=== PATIENT | female | born 1975 | race Caucasian/White ===

== ENCOUNTER → 2018-09-17 | Outpatient (CLI) | payer MEDICAID ==
--- NOTE | 2018-09-17 16:31 | US ---
EXAMINATION TYPE: US pelvic complete DATE OF EXAM: 09/17/2018 COMPARISON: Pelvic ultrasound September 25, 2013 CLINICAL HISTORY: N93.9 Abnormal uterine and vaginal bleeding. Vaginal spotting intermittently x 2 we eks; uterine fibroids; G0; on Synthroid TECHNIQUE: Transabdominal (TA). Transabdominal sonographic images of the pelvis were acquired; alexia ent declined TV US to further assess endometrium. Date of LMP: 09/15/2018 EXAM MEASUREMENTS: Uterus: 7.9 x 6.2 x 5.9 cm Endometrial Stripe: 0.7 cm Right Ovary: 3.1 x 2.0 x 2.0 cm Left Ovary: 2.3 x 2.4 x 1.7 cm 1. Uterus: Anteverted; multiple uterine fibroids with largest at upper uterus = 3.5 x 2.6 x 2.9cm sm all Nabothian Cyst in cervix = 0.6 x 0.8 x 0.6cm. 2. Endometrium: thicker for Day 3 LMP 3. Right Ovary: follicular cyst = 1.7 x 1.1 x 1.0cm 4. Left Ovary: multiple follicles with largest = 1.0 x 1.3 x 1.2cm. Spectral, color and waveform Doppler imaging shows good arterial and venous flow within the ovaries ; 5. Bilateral Adnexa: wnl 6. Posterior cul-de-sac: wnl Heterogeneous anteverted uterus is seen. There are multiple heterogeneous hypoechoic lesions identifi ed by technologist during real-time scanning, a peripheral fundal slightly hypoechoic 3.5 cm poorly d efined lesion is felt to reflect subserosal fibroid per technologist. No free fluid is seen in pelvic cul-de-sac. Of small Nabothian cyst is seen in the cervix image 32. Both ovaries are identified and normal in size. No suspicious adnexal lesions are seen. IMPRESSION: Heterogeneous probable fibroid uterus. Fibroids can be better evaluated and characterized with pelvic MRI if desired.
== END | disposition home or self-care (01) ==
LOC: RADUSWWP 15:31
PROVIDERS: ATTEND Family Medicine
DX: N93.9 Abnormal uterine and vaginal bleeding, unspecified (principal); Z86.018 Personal history of other benign neoplasm
CPT/HCPCS: 76856

== ENCOUNTER → 2018-09-27 | Outpatient (CLI) | payer MEDICAID ==
--- NOTE | 2018-09-27 09:52 | MM ---
Reason for exam: clinical finding. Baseline mammogram. History: Patient is nulliparous. Indicated problem(s): lump or thickening in the left breast. Physical Findings: Nurse Summary: 2cm nodule in the left breast at 2 o'clock (nurse ad). MG Diagnostic Mammo w CAD GABRIELA Bilateral CC and MLO view(s) were taken. The breast tissue is heterogeneously dense. This may lower the sensitivity of mammography. There is no discrete abnormality. These results were verbally communicated with the patient and result sheet given to the patient on 09/27/18. ASSESSMENT: Incomplete: need additional imaging evaluation, BI-RAD 0 RECOMMENDATION: Ultrasound of the left breast.
--- NOTE | 2018-09-27 09:56 | USB ---
Reason for exam: additional evaluation requested from abnormal screening. History: Patient is nulliparous. US Breast LT Left complete breast ultrasound includes all four quadrants, the retroareolar region and axilla. Finding demonstrates a 0.3 x 0.3 x 0.2cm oval, cystic lesion at 12 o'clock, a 0.6 x 0.6 x 0.3cm oval, irregular, hypoechoic lesion at 1 o'clock, a 2.0 x 2.1 x 1.6cm irregular, hypoechoic, vascular lesion at 2 o'clock BB for which a biopsy is recommended, a 1.5 x 1.6 x 0.6cm oval, lobular, hypoechoic lesion at 5 o'clock, a 0.7 x 0.5 x 0.4cm oval, lobular, irregular, hypoechoic lesion at 6 o'clock, a 0.5 x 0.5 x 0.4cm oval, cystic lesion at 8 o'clock, a 1.2 x 0.9 x 0.8cm irregular, oval, hypoechoic lesion at the posterior nipple for which a biopsy is recommended and a 0.9 x 0.8 x 0.6cm axilla node. These results were verbally communicated with the patient and result sheet given to the patient on 09/27/18. ASSESSMENT: Highly suggestive of malignancy, BI-RAD 5 RECOMMENDATION: Surgical consultation and ultrasound core biopsy of the left breast. (2 sites) Called with mammographic findings and has scheduled an appointment for the patient for 10/02/18 at 2:[address] Bermudez. PRELIMINARY REPORT CALLED AND FAXED TO ON 09/27/18. [facility]
== END ==
LOC: RADMAMWWP 07:05
PROVIDERS: ATTEND Family Medicine
DX: N63.20 Unspecified lump in the left breast, unspecified quadrant (principal)
CPT/HCPCS: 77066

== ENCOUNTER → 2018-10-09 | Day surgery (SDC) | payer MEDICAID ==
[2018-10-09 13:44] VITALS: BP 123/71; TEMP 97.9; BMI 21.2
--- NOTE | 2018-10-09 15:45 | USB ---
EXAMINATION TYPE: US biopsy breast VAD LT, US biopsy breast add'l VAD LT Post procedure diagnostic mammo LT wo CAD DATE OF EXAM: 10/09/2018 CLINICAL HISTORY: 43-year-old female palpable lump left breast referred for multi site biopsy. R92.8 ABN MAMMO. TECHNIQUE: Ultrasound guided core biopsy of the left breast. COMPARISON: 09/27/2018 FINDINGS: The procedure of ultrasound guided core biopsy was explained to the patient. Benefits, alternatives, and risks were discussed. An informed consent was then obtained. We note multiple lesions on the patient's 09/27/2018 exam. The 2:00 lesion corresponds to the suspicious palpable site. A posterior nipple lesion is in relatively close proximity to the 2:00 lesion and has a similar appearance. 1:00, 5:00, 6:00, at 8:00 lesions are all suspicious. Decision was made to biopsy the palpable 2:00 site as well as the 8:00 site to assess for potential multicentric disease. The patient was placed in supine positioning for imaging and for the procedure. The overlying skin was prepped and draped in usual sterile fashion. Lidocaine buffered with bicarbonate was used as anesthetic into the skin and subcutaneous tissue up to area of concern in the left breast, at each site in turn. (1) SITE A: Palpable 2:00 -- additional deeper local anesthesia utilizing lidocaine/epinephrine mixture was utilized up to and around the lesion. Under ultrasound guidance, a 13-gauge vacuum-assisted Mammotome Elite biopsy gun device was used to obtain 6 core samples. Following this, a WING CLIP was left in lesion. (2) SITE B: 8:00, indeterminate but suspicious -- Under ultrasound guidance, a 13-gauge vacuum-assisted Mammotome Elite biopsy gun device was used to obtain 3 core samples. Following this, a COIL CLIP was left in lesion. (3) To assess proximity of lesions, a RIBBON CLIP was placed in the posterior nipple mass which is very suspicious and is in relative proximity to the sampled 2:00 mass. The patient tolerated the procedure well without any immediate complication. The patient was kept in the radiology department for short stay after the procedure and then discharged home in stable condition. Postbiopsy mammogram shows the [address] Maximum distance between the clips is approximately 5 to 6 cm. IMPRESSION: 1. Successful, uncomplicated 2 site ultrasound guided core biopsy of suspicious left breast lesions: -- 2:00, very suspicious large palpable mass, wing clip. -- 8:00, suspicious smaller lesion (to assess for potential multicentric disease, coil clip. -- Posterior nipple - Ribbon clip placed (without biopsies) of the very suspicious mass. Full pathology results to follow. If the 8:00 lesion returns as benign, consideration can be given to sampling the 5:00 or 6:00 lesions to assess for potential multicentric disease. Breast MRI can also be considered. Pathology Results: Malignant A. 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 Appropriately controlled E-Cadherin stained sections show negative staining of tumor cells confirmatory of lobular carcinoma. B. 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 Appropriately controlled E-cadherin stained sections show negative staining of tumor cells confirmatory of lobular carcinoma. Recommendation Surgical consult of the left breast. [facility]
[2018-10-09 15:54] VITALS: PULSE 65; RESP 16
== END ==
LOC: RADUSWWP 13:07
PROVIDERS: ATTEND Surgery
DX: C50.911 Malignant neoplasm of unspecified site of right female breast (principal); D05.01 Lobular carcinoma in situ of right breast; Z88.1 Allergy status to other antibiotic agents; Z88.5 Allergy status to narcotic agent; Z88.2 Allergy status to sulfonamides
CPT/HCPCS: 88305; 88342; 88341; 77065; 19083; 19084; A4648; J2001

== ENCOUNTER → 2018-10-17 | Outpatient (CLI) | payer MEDICAID ==
[2018-10-17 08:17] VITALS: BP 147/82; PULSE 70; RESP 16; TEMP 98.1; BMI 20.9
--- NOTE | 2018-10-17 09:12 | P.GSHP ---
History of Present Illness H&P Date: 10/17/18 Chief Complaint: left breast cancer Jane is a 43 year old white female who August 24 noted a change in her left breast. There was a fullness and some skin dimpling different than the right side. She subsequently had a bilateral mammogram performed on 10-07-18. The mammogram revealed dense breast tissue. She therefore underwent an ultrasound of the left breast. On the ultrasound of the left breast there were 4 areas of concern 2 of which were biopsied. The 2 biopsied areas revealed infiltrating adenocarcinoma consistent with pleomorphic lobular carcinoma as well as lobular carcinoma in situ. There is slight distortion of the nipple pulling inferior on the left side. She does complain of a burning aching sensation in the left breast. The patient has no history of any trauma or infection to her breast. Family History: maternal grandmother: colon cancer maternal cousin: at 52 of colon cancer Hormonal History: menarche: 14 : none periods: regular, last period this week BCP: 15 years, than had a tubaligation Surgical history: 1. tubaligation 2. sliver in foot Medical History: hypothyroid ? IBS history of MRSA of big toe right foot 3 years ago Social History: smoke: stopped 3 years ago, used to smoke 1 pack/week, 5 years alcohol: occasional drugs: none - Constitutional Constitutional: Denies chills, Denies fever - EENT Eyes: denies blurred vision, denies pain Ears: bilateral: decreased hearing, deny: tinnitus Ears, nose, mouth and throat: Reports headache, Denies sore throat - Breasts Breasts: bilateral: as per HPI - Cardiovascular Cardiovascular: Denies chest pain, Denies shortness of breath - Respiratory Respiratory: Denies cough, Denies 7 - Gastrointestinal Comment: IBS - Genitourinary (Female) Comment: status post tubaligation - Menstruation Menstruation: Reports period normal - Musculoskeletal Musculoskeletal: Denies myalgias - Integumentary Comment: hives in the past, now improved Integumentary: Denies pruritus, Denies rash - Neurological Neurological: Denies numbness, Denies weakness - Psychiatric Psychiatric: Reports anxiety, Denies depression - Endocrine Endocrine: Denies fatigue, Denies weight change - Hematologic/Lymphatic Comment: none - Allergic/Immunologic Comment: cephalexin, hydrocodone sinus inflammation at times hives in the past Past Medical History Past Medical History: Thyroid Disorder History of Any Multi-Drug Resistant Organisms: MRSA Date of last positivie culture/infection: 01/2015 MDRO Source:: UNK Past Surgical History: Tubal Ligation Past Anesthesia/Blood Transfusion Reactions: No Reported Reaction Past Psychological History: Anxiety Smoking Status: Former smoker Past Alcohol Use History: Occasional Past Drug Use History: None Reported Medications and Allergies Home Medications Medication Instructions Recorded Confirmed Type Levothyroxine Sodium [Synthroid] 25 mcg PO DAILY 06/15/15 10/09/18 History Cetirizine HCl [Zyrtec] 10 mg PO DAILY PRN 10/02/18 10/17/18 History Allergies Allergy/AdvReac Type Severity Reaction Status Date / Time cephalexin [From Keflex] Allergy Unknown Verified 10/17/18 08:11 hydrocodone Allergy Unknown Verified 10/17/18 08:11 Surgical - Exam Vital Signs Temp Pulse Resp BP Pulse Ox 98.1 F 70 16 147/82 100 10/17/18 08:12 10/17/18 08:12 10/17/18 08:12 10/17/18 08:12 10/17/18 08:12 BMI 20.9 - General well developed, well nourished, no distress - Eyes normal ocular movement - ENT no hearing loss, no congestion - Neck no masses, trachea midline - Respiratory normal respiratory effort, clear to auscultation - Cardiovascular Rhythm: regular Heart Sounds: normal: S1, S2 - Abdomen Abdomen: soft, non tender, no guarding, no rigid, no rebound - Integumentary no rash, no abnormal pigmentation - Neurologic no disoriented, no combative - Musculoskeletal normal gait, normal posture - Psychiatric oriented to time, oriented to person, oriented to place, speech is normal, memory intact Breast examination: Right breast: Multi-positional exam no dominant masses or nodules of concern Axilla: No adenopathy of concern Left breast: Ecchymosis related to recent biopsy, fullness in the 8 o'clock position core large mass noted, mild nipple retraction, fibrocystic changes Left axilla: Shoddy non-worrisome adenopathy Breast size: 38 D/C Ptosis mild Results Mammogram and ultrasound reviewed Assessment and Plan Assessment: Impression: 1. 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 Fibrocystic breast changes 3. Family history of cancer 4. Sinus inflammation 5. Radiographic abnormality left breast I have reviewed the patient's mammogram and ultrasound with radiology. The concern is that the patient has multifocal disease. The patient also has some nipple retraction. I've discussed with the patient surgical treatment options. The patient wishes to undergo a left skin sparing mastectomy with immediate reconstruction, she will also undergo a sentinel node biopsy as well as possible axillary node dissection. We have also discussed the right breast. The patient is going to be recommended to undergo a bilateral breast MRI. The lesion of concern in the left breast was not identified on mammogram and was seen by ultrasound. The patient is also recommended to undergo genetic testing. She will have her case presented at tumor Board. The patient understands the risks and benefits of the procedure and the procedure will be scheduled in the near future. Plan: 1. Genetic testing 2. Bilateral breast MRI 3. Evaluation by medical oncology 4. Evaluation by radiation oncology 5. Plastic surgical consultation 6. Left breast skin sparing mastectomy with immediate reconstruction, sentinel node biopsy possible axillary node dissection 7. Right breast evaluation via MRI and determination of genetic testing prior to surgery 8. Follow-up care after genetic testing and breast MRI performed 9. Presentation of case at tumor board CC: Dr. Elisabeth Calderón
== END ==
LOC: WWCWWP 07:55
PROVIDERS: ATTEND Surgery
DX: Z53.9 Procedure and treatment not carried out, unspecified reason (principal)

== ENCOUNTER → 2018-11-08 | Outpatient (CLI) | payer MEDICAID ==
--- NOTE | 2018-11-10 14:05 | PE ---
Nuclear medicine PET/CT HISTORY: Breast carcinoma, initial Correlation to breast ultrasound 09/27/2018 left breast Patient received 13.4 mCi F-18 FDG intravenously in delayed scanning was performed from the skull bas e to the mid thighs. Localization and attenuation correction CT scan was also performed. Neck and chest: There is hypermetabolic uptake identified within the left breast, SUV 2.9. No evident axillary, mediastinal, or hilar adenopathy. There is no evident lung mass. No additional suspicious hypermetabolic uptake. No cervical adenopathy. ABDOMEN: Some uptake present within the stomach is felt to be physiologic. No evident liver mass, no retroperitoneal adenopathy or suspicious hypermetabolic uptake. Uterus shows a bulky appearance possi stella due to underlying fibroids. No pelvic adenopathy, no ascites. Osseous structures are within normal limits. IMPRESSION: Findings compatible with patient's history of left breast carcinoma.
== END | disposition home or self-care (01) ==
LOC: RADPETMAIN 14:39
PROVIDERS: ATTEND Internal Medicine Hematology & Oncology
DX: C50.812 Malignant neoplasm of overlapping sites of left female breast (principal)
CPT/HCPCS: 78815; A9552

== ENCOUNTER → 2018-11-20 | Outpatient (CLI) | payer MEDICAID ==
--- NOTE | 2018-11-22 07:56 | BMR ---
EXAMINATION TYPE: MR breast BILAT wo/w con DATE OF EXAM: 11/20/2018 COMPARISON: Bilateral breast mammogram September 27, 2018 BI-RADS 0. Ultrasound left breast September 27 9 BI-RADS 5. PET/CT November 08, 2018. HISTORY: Biopsy-proven multicentric infiltrating adenocarcinoma right breast 2 2:00 and 8:00 position . October 09, 2018. CONTRAST: Multiplanar, multisequence images of the breasts were acquired utilizing 6 mL intravenous Gadavist ga dolinium contrast. TECHNIQUE: A series of fat and water weighted images in the long and short axis views of both breasts are obtained in conjunction with dynamic contrast MRI with subtraction technique. Three-dimensional and additional postprocessing imaging is created on independent workstation and reviewed during offi cial interpretation of this study. FINDINGS: Extremely dense fibroglandular tissue is redemonstrated throughout both breasts. There is n o suspicious skin thickening bilaterally. There is suggestion of slight nipple retraction on the left . Dynamic postcontrast images show moderate to severe background enhancement with areas of rounded gr adual enhancement. No suspicious cystic change in either breast. Near level of the nipple there is artifact from biopsy clip likely corresponding to the 8:00 lesion s een best image 15 series 301. Biopsy clip is along posterior superior margin of a lobulated enhancing 1.2 x 0.7 x 0.3 cm mass which correlates with ultrasound findings correlating with biopsy-proven car cinoma. Just superior and posterior to this there is artifact from biopsy clip at level of nipple see n best axial image 20 where there is 3.2 x 0.9 x 5.4 cm AP diameter heterogeneous lobulated area of m asslike enhancement occupying greater extent of the central left breast slightly lateral aspect. Ther e are additional scattered small foci of suspicious enhancement near these levels in the left breast with extension posteriorly near the chest wall for reference is a 4 x 3 mm suspicious enhancing lesio n near the chest wall seen best image 339 series 702 subtraction image measuring 3 x 4 mm. There are prominent but nonspecific left axillary lymph nodes, largest measures 6 x 5 mm axial image 33. No def initive intramammary adenopathy is seen. No definitive chest wall invasion is present. With regard to the right breast there is no definitive pathologic enhancement or suspicious enhancing mass. No suspicious axillary adenopathy is seen. IMPRESSION: Confirmation of extensive multicentric neoplasm throughout the left breast with additiona l areas present not clearly seen on prior imaging including PET imaging. No convincing evidence for i nvasive malignancy in the right breast. BI-RADS 6 biopsy-proven carcinoma left breast. BI-RADS 2 benign findings right breast. Recommendation: Patient not candidate for conservative surgery left breast. If patient decides to eva p right breast consider annual MRI surveillance in high risk patient.
== END | disposition home or self-care (01) ==
LOC: RADMRIMAIN 09:50
PROVIDERS: ATTEND Surgery
DX: C50.012 Malignant neoplasm of nipple and areola, left female breast (principal)
CPT/HCPCS: 77049; C8937; A9585

== ENCOUNTER → 2018-11-29 | Outpatient (CLI) | payer MEDICAID ==
[2018-11-29 11:14] VITALS: BP 129/77; PULSE 66; RESP 16; TEMP 98.2; BMI 21.2
--- NOTE | 2018-11-29 11:44 | P.GSHP ---
History of Present Illness H&P Date: 11/29/18 Chief Complaint: Left breast cancer The patient is a 43-year-old white female with August noted a change in her left breast. There was a fullness and some skin dimpling which appeared different than on the right side. She subsequently had a bilateral mammogram performed on . The mammogram revealed dense breast tissue. She therefore underwent an ultrasound of the left breast. On ultrasound there were 4 areas of concern 2 of which were biopsied. The 2 biopsy areas revealed infiltrating adenocarcinoma consistent with pleomorphic lobular carcinoma as well as lobular carcinoma in situ. There is slight distortion of the nipple pulling inferior on the left side. The patient states since the biopsy she feels that the area has increased in size. The patient was seen by Dr. Larose believes that she does not need any preoperative chemotherapy and we should p roceed with surgical resection. The patient had an MRI performed which reveals that the tumor on the left side is multifocal. There is no evidence of any malignancy on MRI on the right side. The lesion is ER/PA positive and HER-2 negative grade 2. She has multiple lesions within the left breast at 1:00 there is a lesion measuring 2.1 cm, at 2:00 lesion measuring 1.6 cm, at 5:00 lesion measuring 0.7 cm, at 6:00 lesion measuring 0.5 cm, o'clock of 1.2 cm irregular lesion. A PET scan was performed on . PET scan showed findings compatible with history of left breast carcinoma. No axillary adenopathy was identified on PET scan. We had discussed surgical options and felt that the best choice for Jane is a mastectomy. She concurs with this. Additionally she understands we will do a lymph node biopsy possible axillary node dissection. We also discussed reconstruction however the patient at this time does not want to pursue reconstruction. The patient had genetic testing performed which was negative clinically significant variance detected. Family History: Paternal grandmother: Colon cancer Maternal cousin: of colon cancer at 52 Hormonal history: Menarche: 14 Pregnancies: None Periods: Regular, last Mr. October 15 control pills: 15 years, then had a tubal ligation Line past surgical history: 1. 2 plication 2. Severe in her salad Medical history: Hypothyroidism Irritable bowel syndrome MRSA. Toe right foot 3 years ago Social history: Smoke: Stopped 2 years ago used to smoke 1 pack per week for 5 years Alcohol: Occasional Drugs: Negative - Constitutional Constitutional: Denies chills, Denies fever - EENT Eyes: denies blurred vision, denies pain Ears: deny: decreased hearing, tinnitus Ears, nose, mouth and throat: Denies headache, Denies sore throat - Breasts Breasts: bilateral: as per HPI - Cardiovascular Cardiovascular: Denies chest pain, Denies shortness of breath - Respiratory Respiratory: Denies cough, Denies 7 - Gastrointestinal Comment: IBS - Genitourinary (Female) Comment: tubaligation - Menstruation Menstruation: Reports period normal - Musculoskeletal Musculoskeletal: Denies myalgias - Integumentary Integumentary: Denies pruritus, Denies rash - Neurological Neurological: Denies numbness, Denies weakness - Psychiatric Psychiatric: Denies anxiety, Denies depression - Endocrine Endocrine: Denies fatigue, Denies weight change - Hematologic/Lymphatic Comment: none - Allergic/Immunologic Allergic/Immunologic: Reports as per HPI Past Medical History Past Medical History: Thyroid Disorder History of Any Multi-Drug Resistant Organisms: MRSA Date of last positivie culture/infection: 01/2015 MDRO Source:: UNK Past Surgical History: Tubal Ligation Past Anesthesia/Blood Transfusion Reactions: No Reported Reaction Past Psychological History: Anxiety Smoking Status: Former smoker Past Alcohol Use History: Occasional Past Drug Use History: None Reported Medications and Allergies Home Medications Medication Instructions Recorded Confirmed Type Levothyroxine Sodium [Synthroid] 25 mcg PO DAILY 06/15/15 10/09/18 History Cetirizine HCl [Zyrtec] 10 mg PO DAILY PRN 10/02/18 10/17/18 History Allergies Allergy/AdvReac Type Severity Reaction Status Date / Time cephalexin [From Keflex] Allergy Unknown Verified 11/29/18 11:15 hydrocodone Allergy Unknown Verified 11/29/18 11:15 sulfamethoxazole AdvReac Unknown Unverified 11/29/18 11:16 [From Bactrim] trimethoprim [From Bactrim] AdvReac Unknown Unverified 11/29/18 11:16 Surgical - Exam Vital Signs Temp Pulse Resp BP Pulse Ox 98.2 F 66 16 129/77 99 11/29/18 11:09 11/29/18 11:09 11/29/18 11:09 11/29/18 11:09 11/29/18 11:09 BMI 21.3 - General well developed, well nourished, no distress - Eyes normal ocular movement - ENT no hearing loss - Neck no masses, trachea midline - Respiratory normal respiratory effort, clear to auscultation - Cardiovascular Rhythm: regular Heart Sounds: normal: S1, S2 - Abdomen Abdomen: soft, non tender, no guarding, no rigid, no rebound - Integumentary normal turgor - Neurologic no disoriented, no combative - Musculoskeletal normal gait, normal posture - Psychiatric oriented to time, oriented to place, memory intact breast exam: right breast: Multi-positional exam no dominant masses or nodules of concern, breast is dense Right axilla: No adenopathy of concern Left breast: Multi-positional exam some dimpling of the nipple area with some nodularity throughout the breast Left axilla: No adenopathy of concern Results Mammogram results reviewed PET scan reviewed MRI of the breast reviewed Assessment and Plan Assessment: Impression: 1. Genetic testing negative 2. Bilateral breast MRI reveals left breast lesion nothing on the right 3. Invasive pleomorphic lobular left breast cancer 4. Patient has been evaluated by medical oncology they do not feel that she needs any preoperative intervention 5. Patient has opted not to see plastic surgery at this time 6. PET scan did not reveal any evidence of metastatic disease I have had a conversation with the patient regarding surgical options. At this time she does not want plastic surgical intervention and reconstruction. She does want us to leave adequate tissue for reconstruction possibly in the future. Plan: 1. Left breast mastectomy with sentinel node biopsy possible axillary node dissection CC: Dr. Kell Bermudez
== END | disposition home or self-care (01) ==
LOC: WWCWWP 10:59
PROVIDERS: ATTEND Surgery
DX: Z53.9 Procedure and treatment not carried out, unspecified reason (principal)

== ENCOUNTER 2018-12-03 07:12 | Day surgery (SDC) | payer MEDICAID ==
[~2018-12-03 07:12] MED LIST: DEXAMETHASONE SOD PHOSPHATE 10 MG/ML 1 ML VIAL IV ONE; HEPARIN SODIUM,PORCINE 5,000 UNIT/ML 1 ML VIAL SQ ONE; HYDROmorphone 0.5 MG/0.5 ML SYRINGE IVP PRN; LACTATED RINGERS 1,000 ML IV SCH; LIDOCAINE 1% 20 ML VIAL (10MG/ML) FOR IV START INTRADERMA PRN; MIDAZOLAM 2 MG/2 ML VIAL IV PRN; ONDANSETRON 4 MG/2 ML VIAL IVP ONE; Pre Op ABX Message 1 EACH MISC MISCELLANE ONE; SCOPOLAMINE 1.5MG/72HR PATCH TRANSDERM ONE
--- NOTE | 2018-12-03 08:33 | P.ONQ ---
Anesthesiology Proc Note - PNB - Peripheral Nerve Block Performed Left Other (see comment) Single Time Out Performed: Yes Procedure Start Time: 08:15 Procedure Stop Time: :22 Indication: Acute Post-Operative Pain, Requested by physician Sedation Type: Sedate with meaningful contact maintained Preparation: Sterile Prep Position: Supine Catheter: None Needle Types: Facet Needle Size: 80mm (3") Needle Gauge: 21 Technique: Ultrasound Injectate: 0.5% Ropivacaine (see comment for volume) (30 ml divided 15 ml per site) Blood Aspirated: No Pain Paresthesia on Injection Noted: No
--- NOTE | 2018-12-03 08:51 | NM ---
EXAMINATION TYPE: NM sentinel node injection DATE OF EXAM: 12/03/2018 COMPARISON: Left breast biopsy dated 10/09/2018 HISTORY: Left breast pain TECHNIQUE AND FINDINGS: The procedure of sentinel lymph node injection was explained to the patient. The benefits, alternatives, and risks were discussed. An informed consent was then obtained. Overlying skin is cleaned with sterile alcohol. Following this, 560 uCi Tc99m Tilmanocept was inject ed in the upper outer aspect of the left nipple intradermally. The patient tolerated the procedure well without any immediate complication. The patient was kept in the radiology department for short stay after the procedure and then taken to surgery for surgical p rocedure what is presumed intraoperative gamma probe will be used for sentinel lymph node detection. IMPRESSION: Left breast radiotracer injection for sentinel node localization as above.
[2018-12-03] MEDS ORDERED: NEOSTIGMINE 1 MG/ML 10 ML VIAL ONE (09:00)
[2018-12-03] MEDS ORDERED: MIDAZOLAM 2 MG/2 ML VIAL ONE (09:00)
[2018-12-03] MEDS ORDERED: LIDOCAINE 1% INJ 10MG/ML (20 ML MDV) ONE (09:00)
[2018-12-03] MEDS ORDERED: KETOROLAC 30 MG/ML 1 ML VIAL ONE (09:00)
[2018-12-03] MEDS ORDERED: PROPOFOL 10 MG/ML 20 ML VIAL IV ONE (09:00)
[2018-12-03] MEDS ORDERED: fentaNYL (PF) 50 MCG/ML 2 ML AMP ONE (09:00)
[2018-12-03] MEDS ORDERED: ROCURONIUM BROMIDE 10 MG/ML 10 ML VIAL IV ONE (09:00)
[2018-12-03] MEDS ORDERED: CLINDAMYCIN 150 MG/ML 4 ML VIAL ONE (09:00)
[2018-12-03] MEDS ORDERED: PHENYLEPHRINE-0.9% NACL SYG 1 MG/10 ML SYRINGE ONE (09:00)
[2018-12-03] MEDS ORDERED: ROPIVACAINE 5 MG/ML 30 ML VIAL ONE (09:00)
[2018-12-03] MEDS ORDERED: GLYCOPYRROLATE 0.2 MG/ML 2 ML VIAL ONE (09:00)
[2018-12-03] MEDS ORDERED: HEPARIN SODIUM,PORCINE 5,000 UNIT/ML 1 ML VIAL SQ ONE (09:23)
--- NOTE | 2018-12-03 09:25 | P.NAPBC ---
[facility] Queries - [facility] Was patient's case review presented at [facility] tumor board? If no, comment.: Yes Was patient's pathology reviewed at [facility]? If no, comment.: Yes Was breast conservation surgery offered? If no, comment.: No (multfocal disease) Was sentinel node biopsy offered? If no, comment.: Yes Was diagnosis confirmed by percutaneous core biopsy? If no, comment.: Yes If mastectomy patient, was a preop referral to a reconstructive surgeon offered?: Yes [facility] Comments: [id number]+Her2-Grade2
[2018-12-03] MEDS ORDERED: NALOXONE 0.4 MG/ML 1 ML VIAL IV PRN (11:25)
[2018-12-03] MEDS ORDERED: ONDANSETRON 4 MG/2 ML VIAL IVP PRN (11:25)
[2018-12-03] MEDS ORDERED: HYDROmorphone 1 MG/ML 1 ML SYRINGE IV PRN (11:25)
--- NOTE | 2018-12-03 11:25 | P.OP ---
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 This was done via cold biopsy. The patient opted for a mastectomy with sentinel node biopsy possible axillary node dissection. The patient was taken to the operating room and following induction of anesthesia the left breast and axilla were prepped and draped in a sterile fashion. Superior skin flap was developed using the electrocautery device. The skin flap was carried down to the chest wall. Inferior skin flap was then developed. The flap was developed using the electrocautery device. Prior to removing the breast the axilla was entered. The neoprobe was utilized to identify the area of increased radioactivity. The sentinel node was identified. This was removed. The 10 second count was 84,000. The second sentinel node was identified and its 10 second count was 26,000. The background count in the axilla was minimal. Frozen section evaluation to sentinel node found to be negative for malignancy. The breast was removed from medial to lateral using the LigaSure as well as the nerve. The wound was well irrigated. After assured that hemostasis was attained 2 Aba-Murphy drains were placed. One was placed in the axilla was placed under the skin flaps. The deep tissues were closed using 2-0 Vicryl suture. This is followed by closure of the skin with 4-0 Monocryl. The patient tolerated the procedure in stable condition. All instrument and sponge counts were correct at the end of the case. Patient tolerated the procedure in stable condition.
[2018-12-03 14:33] VITALS: BMI 21.1
[2018-12-03] MEDS: Acetaminophen-Codeine 300-30mg TAB PO PRN ×2 (16:17→21:02)
[2018-12-03] MEDS: DEXTROSE 5%-0.45% NACL 1,000 ML IV SCH ×2 (16:20→21:04)
[2018-12-03] MEDS: HEPARIN SODIUM,PORCINE 5,000 UNIT/ML 1 ML VIAL SQ SCH (21:04)
[2018-12-04] MEDS: Acetaminophen-Codeine 300-30mg TAB PO PRN ×4 (00:37→13:52)
[2018-12-04] MEDS: DEXTROSE 5%-0.45% NACL 1,000 ML IV SCH (02:05)
[2018-12-04 05:51] LABS: Basophils % (A) 0 %; Eosinophils # (A) 0.1 k/uL (0-0.7); Eosinophils % (A) 1 %; HCT 30.5 % (34.0-46.0); HGB 10.3 gm/dL (11.4-16.0); Lymphocytes # (A) 1.7 k/uL (1.0-4.8); Lymphocytes % (A) 18 %; MCH 31.8 pg (25.0-35.0); MCHC 33.7 g/dL (31.0-37.0); MCV 94.1 fL (80.0-100.0); Monocytes # (A) 0.4 k/uL (0-1.0); Monocytes % (A) 5 %; Neutrophils # (A) 7.3 k/uL (1.3-7.7); Neutrophils % (A) 76 %; Platelet Count 284 k/uL (150-450); RBC 3.24 m/uL (3.80-5.40); RDW 12.4 % (11.5-15.5); WBC 9.7 k/uL (3.8-10.6)
--- NOTE | 2018-12-04 07:52 | P.PN ---
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 She is postop day #1 from a left mastectomy and sentinel node biopsy. [place] biopsy and frozen section was negative for malignancy. The patient has no complaints at this time. She is tolerating her diet without difficulty. Objective - Vital Signs Vital signs: Vital Signs Temp 98.8 F 12/04/18 03:40 Pulse 60 12/04/18 03:40 Resp 18 12/04/18 03:40 BP 98/54 12/04/18 03:40 Pulse Ox 95 12/04/18 03:40 Intake & Output 12/03/18 12/04/18 12/04/18 18:59 06:59 18:59 Intake Total 1000 1500 Output Total 1665 1405 Balance -665 95 Intake: IV 1000 Intake, IV Titration 1000 Amount Dextrose 5%-0.45% NaCl 1, 1000 000 ml @ 100 mls/hr IV . Q10H HAYDEN Rx#:[id number] Oral 500 Output: Drainage 40 30 FELECIA number 1 28 20 FELECIA number 2 12 10 Urine 1600 1375 Estimated Blood Loss 25 Other: Voiding Method Toilet Toilet # Voids 1 1 - Constitutional General appearance: Present: average body habitus - EENT Eyes: Present: EOMI ENT: Present: hearing grossly normal - Neck Neck: Present: normal ROM - Respiratory Respiratory: bilateral: CTA - Cardiovascular Rhythm: regular Heart sounds: normal: S1, S2 - Integumentary Integumentary Comment(s): Dressing changed Incision clean and dry FELECIA #1 20 mL FELECIA #2 10 mL Drainage is light serosanguineous - Labs CBC & Chem 7: 12/04/18 05:38 Labs: Abnormal Lab Results - Last 24 Hours (Table) 12/04/18 Range/Units 05:38 RBC 3.24 L (3.80-5.40) m/uL Hgb 10.3 L (11.4-16.0) gm/dL Hct 30.5 L (34.0-46.0) % Assessment and Plan Assessment: Impression: 1. Patient postop day #1 left mastectomy with sentinel node biopsy 2. Patient without complaints at this time 3. CBC white count 9.7, hemoglobin 10.3 Plan: 1. Discharge home to be followed as an outpatient 2. Tis patient drain care 3. Follow-up with Dr. Yanez next week 4. Patient to call immediately if any questions or concerns 5. Patient to wear a binder at all times unless in shower 6. Patient may shower after 48 hours
--- NOTE | 2018-12-04 07:55 | P.DS ---
Providers Date of admission: 12/03/18 Expected date of discharge: 12/04/18 Attending physician: Luci Hernandez Primary care physician: [facility] Course: The patient is a 43-year-old white female who was diagnosed with left breast pleomorphic multifocal invasive lobular carcinoma. The patient underwent a mastectomy with sentinel node biopsy. Postoperatively she has done well with no complaints. She is tolerating her diet without difficulty. Plan - Discharge Summary Discharge Rx Participant: Yes New Discharge Prescriptions: No Action Levothyroxine Sodium [Synthroid] 25 mcg PO DAILY Cetirizine HCl [Zyrtec] 10 mg PO DAILY PRN PRN Reason: allergies Ibuprofen [Motrin Ib] 200 - 400 mg PO Q6H PRN PRN Reason: Pain Discharge Medication List Levothyroxine Sodium [Synthroid] 25 mcg PO DAILY 06/15/15 [History] Cetirizine HCl [Zyrtec] 10 mg PO DAILY PRN 10/02/18 [History] Ibuprofen [Motrin Ib] 200 - 400 mg PO Q6H PRN 11/29/18 [History] Follow up Appointment(s)/Referral(s): Luci Hernandez MD [STAFF PHYSICIAN] - 1 Week Activity/Diet/Wound Care/Special Instructions: Do not drive while taking narcotic pain medication Patient may shower after 48 hours Wear binder at all times unless showering Patient to keep drains to suction and record amount of output twice a day Discharge Disposition: HOME SELF-CARE
[2018-12-04] MEDS: HEPARIN SODIUM,PORCINE 5,000 UNIT/ML 1 ML VIAL SQ SCH (09:02)
[2018-12-04 12:16] VITALS: BP 107/66; PULSE 58; RESP 16; TEMP 98.4
== END 2018-12-04 16:15 | disposition home or self-care (01) ==
LOC: OR 07:12 → 4MS4W 11:50 → 6PED 12:59 → OR 12-04 16:15
PROVIDERS: ATTEND Surgery
DX: C50.912 Malignant neoplasm of unspecified site of left female breast (principal); C77.3 Secondary and unspecified malignant neoplasm of axilla and upper limb lymph nodes; Z17.0 Estrogen receptor positive status [ER+]; E07.9 Disorder of thyroid, unspecified; E03.9 Hypothyroidism, unspecified; K58.9 Irritable bowel syndrome, unspecified; Z80.0 Family history of malignant neoplasm of digestive organs; Z98.51 Tubal ligation status; Z86.14 Personal history of Methicillin resistant Staphylococcus aureus infection; Z87.891 Personal history of nicotine dependence; Z88.1 Allergy status to other antibiotic agents; Z88.5 Allergy status to narcotic agent; Z88.2 Allergy status to sulfonamides
CPT/HCPCS: 19303; 38500; 81025; 64491; 85025; 88342; 88331; 88307; 88341; 38792; A9520; J2250; J1644 ×2; J1100; J2710; J2405; J2001; J3010; J1885; J2795; J2370; J2704

== ENCOUNTER → 2018-12-12 | Outpatient (CLI) | payer MEDICAID ==
[2018-12-12 16:01] VITALS: BP 119/82; PULSE 69; RESP 16; TEMP 97.6; BMI 20.2
--- NOTE | 2018-12-12 16:41 | P.PN ---
Progress Note - Text Progress Note Date: 12/12/18 Post op Left mastectomy and SNB on 12-03-18 pathology revealed microscopic disease in 2 nodes, it was negative on frozen section margins negative tumor 4 cm, multifocal invasive lobular disease Patient without complaints PE incision : clean and dry FELECIA drains less than 30 C/day for several days lungs: clear heart: RRR Impression: 1. post-op sentinal nodes microscopic disease, to follow with medical and radiation oncology 2. represent at tumor board 3. follow here in three months CC: Kell Bermudez
== END | disposition home or self-care (01) ==
LOC: WWCWWP 15:44
PROVIDERS: ATTEND Surgery
DX: Z53.9 Procedure and treatment not carried out, unspecified reason (principal)

== ENCOUNTER → 2019-03-19 | Outpatient (CLI) | payer MEDICAID ==
[~2019-03-19] MED LIST changes: -DEXAMETHASONE SOD PHOSPHATE 10 MG/ML 1 ML VIAL IV ONE; -HEPARIN SODIUM,PORCINE 5,000 UNIT/ML 1 ML VIAL SQ ONE; -HYDROmorphone 0.5 MG/0.5 ML SYRINGE IVP PRN; -LACTATED RINGERS 1,000 ML IV SCH; +LEUPROLIDE ACET 11.25MG SYRGKIT IM NR; -LIDOCAINE 1% 20 ML VIAL (10MG/ML) FOR IV START INTRADERMA PRN; -MIDAZOLAM 2 MG/2 ML VIAL IV PRN; -ONDANSETRON 4 MG/2 ML VIAL IVP ONE; -Pre Op ABX Message 1 EACH MISC MISCELLANE ONE; -SCOPOLAMINE 1.5MG/72HR PATCH TRANSDERM ONE
[2019-03-19 10:20] VITALS: BP 115/71; PULSE 64; RESP 16; TEMP 98.5
== END | disposition home or self-care (01) ==
LOC: PROCWHC3 09:53
PROVIDERS: ATTEND Internal Medicine Hematology & Oncology
DX: C50.812 Malignant neoplasm of overlapping sites of left female breast (principal); Z17.0 Estrogen receptor positive status [ER+]
CPT/HCPCS: 96402; J1950

== ENCOUNTER → 2019-06-23 | Outpatient (CLI) | payer MEDICAID ==
[2019-06-23 10:55] VITALS: BP 131/78; PULSE 71; RESP 16; TEMP 98.7
== END | disposition home or self-care (01) ==
LOC: PROCWHC3 10:31
PROVIDERS: ATTEND Internal Medicine Hematology & Oncology
DX: Z51.11 Encounter for antineoplastic chemotherapy (principal); C50.812 Malignant neoplasm of overlapping sites of left female breast; Z17.0 Estrogen receptor positive status [ER+]
CPT/HCPCS: 96402; J1950

== ENCOUNTER → 2019-09-30 | Outpatient (CLI) | payer MEDICAID ==
[~2019-09-30] MED LIST changes: -LEUPROLIDE ACET 11.25MG SYRGKIT IM NR; +LEUPROLIDE ACET 11.25MG SYRGKIT IM ONE
[2019-09-30 10:11] VITALS: BP 134/94; PULSE 74; RESP 16; TEMP 97.8
== END | disposition home or self-care (01) ==
LOC: PROCWHC3 09:51
PROVIDERS: ATTEND Internal Medicine Hematology & Oncology
DX: Z51.11 Encounter for antineoplastic chemotherapy (principal); C50.812 Malignant neoplasm of overlapping sites of left female breast; Z17.0 Estrogen receptor positive status [ER+]
CPT/HCPCS: 96402

== ENCOUNTER 2019-10-25 13:12 | Observation (INO) | payer MEDICAID ==
[2019-10-25] MEDS ORDERED: ASPIRIN 81 MG PO STA (13:39)
--- NOTE | 2019-10-25 13:40 | ED ---
General Adult HPI - General Chief complaint: Recheck/Abnormal Lab/Rx Stated complaint: elevated bp Time Seen by Provider: 10/25/19 13:19 Source: patient, family Mode of arrival: wheelchair - History of Present Illness Initial comments: Dictation was produced using [employer] dictation software. please excuse any grammatical, word or spelling errors. This patient was cared for during a federal and state declared state of emergency secondary to Covid 19 Chief Complaint: 44-year-old female presents with concern of heart attack. History of Present Illness: The 44-year-old female she states she has strong family history of coronary artery disease and myocardial infarction. Over the last couple days she's been having an ache in her left shoulder and back region. She states that it came on during exertional chest House. Denies any shortness of breath. No sustained diaphoresis. Patient has no history of coronary artery disease. She has been having blood pressure issues since recently been diagnosed with breast cancer. She does take breast cancer medications. Patient denies any symptoms at rest. States that the pain as an ache. She denies any sharp severe pain. No respiratory symptoms. The ROS documented in this emergency department record has been reviewed and confirmed by me. Those systems with pertinent positive or negative responses h ave been documented in the HPI. All other systems are other negative and/or noncontributory. PHYSICAL EXAM: General Impression: Alert and oriented x3, not in acute distress HEENT: Normocephalic atraumatic, extra-ocular movements intact, pupils equal and reactive to light bilaterally, mucous membranes moist. Cardiovascular: Heart regular rate and rhythm Chest: Able to complete full sentences, no retractions, no tachypnea Abdomen: Bowel sounds present, abdomen soft, non-tender, non-distended, no organomegaly Musculoskeletal: Pulses present and equal in all extremities, no peripheral edema Motor: no focal deficits noted Neurological: CN II-XII grossly intact, no focal motor or sensory deficits noted Skin: Intact with no visualized rashes Psych: Normal affect and mood ED course: 44 female presents with atypical chest symptoms with minimal typical features. Signs upon arrival are within acceptable limits. EKG does not show any signs of ischemia or infarction. Repeat EKG performed 40 minutes later shows no dynamic changes. Laboratory evaluation obtained. CBC, metabolic panel is unremarkable. Troponin is negative. Chest x-ray shows no acute processes. Patient reevaluated at [facility]. Disposition plans were discussed with patient. She is told that it is recommended that she be admitted for serial troponins with cardiology consultation. Patient is agreeable. Patient be admitted to [facility] hospitalist group. EKG interpretation: Ventricular rate 70, normal sinus rhythm,. Interval 136, QRS 94, QTC 427. No FL prolongation, no QTC prolongation, no ST or T-wave franco ges noted. Overall, this EKG is unremarkable - Related Data Home Medications Medication Instructions Recorded Confirmed Levothyroxine Sodium [Synthroid] 25 mcg PO DAILY 06/15/15 10/25/19 Cetirizine HCl [Zyrtec] 10 mg PO DAILY PRN 10/02/18 10/25/19 Lisinopril [Zestril] 2.5 mg PO DAILY PRN 10/25/19 10/25/19 Tamoxifen Citrate 20 mg PO HS 10/25/19 10/25/19 Allergies Allergy/AdvReac Type Severity Reaction Status Date / Time cephalexin [From Keflex] Allergy Severe Swelling Verified 10/25/19 13:55 hydrocodone Allergy Nausea Verified 10/25/19 13:55 sulfamethoxazole AdvReac Unknown Verified 10/25/19 13:55 [From Bactrim] trimethoprim [From Bactrim] AdvReac Unknown Verified 10/25/19 13:55 Review of Systems ROS Statement: Those systems with pertinent positive or pertinent negative responses have been documented in the HPI. ROS Other: All systems not noted in ROS Statement are negative. Past Medical History Past Medical History: Cancer, Hypertension, Thyroid Disorder Additional Past Medical History / Comment(s): ALLERGIES, SOME FOOD, HAYFEVER. LEFT BREAST CANCER. History of Any Multi-Drug Resistant Organisms: MRSA Date of last positivie culture/infection: 01/2015 MDRO Source:: RIGHT BIG TOE Past Surgical History: Breast Surgery, Tubal Ligation Additional Past Surgical History / Comment(s): Foot surgery for splinter removal 1990. 12/03/2018 left mastectomy Past Anesthesia/Blood Transfusion Reactions: Motion Sickness, Postoperative Nausea & Vomiting (PONV) Past Psychological History: Anxiety Smoking Status: Former smoker Past Alcohol Use History: Occasional Past Drug Use History: None Reported - Past Family History Mother Family Medical History: No Reported History Course Vital Signs 10/25/19 13:15 Temperature 98.3 F Pulse Rate 89 Respiratory 18 Rate Blood Pressure 156/92 O2 Sat by Pulse 99 Oximetry Medical Decision Making - Lab Data Result diagrams: 10/25/19 13:34 10/25/19 13:34 Lab Results 10/25/19 10/25/19 10/25/19 Range/Units 13:34 13:34 13:34 WBC 7.9 (3.8-10.6) k/uL RBC 4.12 (3.80-5.40) m/uL Hgb 12.9 (11.4-16.0) gm/dL Hct 37.5 (34.0-46.0) % MCV 90.8 (80.0-100.0) fL MCH 31.3 (25.0-35.0) pg MCHC 34.5 (31.0-37.0) g/dL RDW 12.0 (11.5-15.5) % Plt Count 403 (150-450) k/uL Neutrophils % 82 % Lymphocytes % 14 % Monocytes % 2 % Eosinophils % 1 % Basophils % 0 % Neutrophils # 6.5 (1.3-7.7) k/uL Lymphocytes # 1.1 (1.0-4.8) k/uL Monocytes # 0.2 (0-1.0) k/uL Eosinophils # 0.1 (0-0.7) k/uL Basophils # 0.0 (0-0.2) k/uL Sodium 142 (137-145) mmol/L Potassium 4.2 (3.5-5.1) mmol/L Chloride 105 (98-107) mmol/L Carbon Dioxide 25 (22-30) mmol/L Anion Gap 12 mmol/L BUN 11 (7-17) mg/dL Creatinine 0.60 (0.52-1.04) mg/dL Est GFR (CKD-EPI)AfAm >90 (>60 ml/min/1.73 sqM) Est GFR (CKD-EPI)NonAf >90 (>60 ml/min/1.73 sqM) Glucose 147 H (74-99) mg/dL Calcium 9.9 (8.4-10.2) mg/dL Troponin I <0.012 (0.000-0.034) ng/mL Disposition Clinical Impression: Chest pain Disposition: ADMITTED IP TO THIS HOSP Condition: Fair Referrals: Kell Bermudez MD [Primary Care Provider] - 1-2 days Decision Time: 14:56
[2019-10-25 14:15] LABS: Basophils % (A) 0 %; Eosinophils # (A) 0.1 k/uL (0-0.7); Eosinophils % (A) 1 %; HCT 37.5 % (34.0-46.0); HGB 12.9 gm/dL (11.4-16.0); Lymphocytes # (A) 1.1 k/uL (1.0-4.8); Lymphocytes % (A) 14 %; MCH 31.3 pg (25.0-35.0); MCHC 34.5 g/dL (31.0-37.0); MCV 90.8 fL (80.0-100.0); Mean Platelet Volume 7.3; Monocytes # (A) 0.2 k/uL (0-1.0); Monocytes % (A) 2 %; Neutrophils # (A) 6.5 k/uL (1.3-7.7); Neutrophils % (A) 82 %; Platelet Count 403 k/uL (150-450); RBC 4.12 m/uL (3.80-5.40); WBC 7.9 k/uL (3.8-10.6)
[2019-10-25 14:20] LABS: African American GFR (CKD) >90 (>60 ml/min/1.73 sqM); Anion Gap 12 mmol/L; Blood Urea Nitrogen 11 mg/dL (7-17); Calcium 9.9 mg/dL (8.4-10.2); Carbon Dioxide 25 mmol/L (22-30); Chloride 105 mmol/L (98-107); Glucose 147 mg/dL (74-99); Non-African American GFR(CKD) >90 (>60 ml/min/1.73 sqM); Potassium 4.2 mmol/L (3.5-5.1); Sodium 142 mmol/L (137-145)
--- NOTE | 2019-10-25 14:34 | XR ---
EXAMINATION TYPE: XR chest 2V DATE OF EXAM: 10/25/2019 COMPARISON: None HISTORY: 44-year-old female with chest and shoulder pain TECHNIQUE: PA and lateral views FINDINGS: Heart normal size. Aorta and pulmonary vasculature within normal limits. Mild hyperinflation. Status post left mastectomy. No consolidation or pleural effusion. IMPRESSION: Mild hyperinflation may relate to depth of inspiration or underlying emphysema. Clinically correlate. Status post left mastectomy. No acute process seen.
[2019-10-25] MEDS ORDERED: NITROGLYCERIN SL TABS 0.4 MG TAB SUBLINGUAL PRN (14:53)
[2019-10-25] MEDS ORDERED: TEMAZEPAM 15 MG CAP PO PRN (17:28)
[2019-10-25] MEDS ORDERED: ACETAMINOPHEN TAB 500 MG TAB PO PRN (17:28)
[2019-10-25] MEDS ORDERED: ALPRAZolam 0.25 MG TAB PO PRN (17:28)
[2019-10-25] MEDS ORDERED: LISINOPRIL 2.5 MG TAB PO PRN (17:28)
[2019-10-25] MEDS ORDERED: LORATADINE 10 MG TAB PO PRN (17:28)
[2019-10-25] MEDS: PANTOPRAZOLE 40 MG TABLET PO SCH (18:19)
[2019-10-25 18:24] VITALS: RESP 16
--- NOTE | 2019-10-25 20:35 | HP ---
HISTORY AND PHYSICAL DATE OF SERVICE: 10/25/2019 CHIEF COMPLAINT: Chest pain. HISTORY OF PRESENT ILLNESS: This 44-year-old woman with a past medical history of multiple medical problems including history of hypertension, history hypothyroidism, history of left breast cancer, history of MRSA, history of tubal ligation, history of anxiety, being followed by Dr. Kell Bermudez in the outpatient setting is complaining of chest pain. The patient apparently had a strong family history of cardiac disease and myocardial infarction. The chest pain the patient describes as mild to moderate intensity, aching type of feeling in the left-sided chest, left shoulder and back also. The patient came to [facility] and was admitted for further evaluation and treatment. The patient also complaining of occasional right upper quadrant abdominal pain. Patient has seen Dr. Rosas previously. The patient apparently had a gallbladder polyp. The EKG done at the time of presentation is normal sinus rhythm and the initial troponins are negative also. There is no history of fever, rigors. No headache, loss of consciousness or seizures. Patient had a stress test several years ago according to her. PAST MEDICAL HISTORY: History of hypertension, history of hypothyroidism. Multiple allergies and also anxiety, left breast cancer. MEDICATIONS: 1. Tamoxifen 20 mg q.h.s. 2. Zestril 2.5 mg daily p.r.n. 3. Zyrtec 10 mg daily p.r.n. 4. Synthroid 25 mcg p.o. daily. ALLERGIES: KEFLEX, HYDROCODONE, BACTRIM. FAMILY HISTORY: No history of heart disease or strokes in the family. SOCIAL HISTORY: Previous history of smoking. No history of alcohol intake. REVIEW OF SYSTEMS: ENT: No diminished vision. No diminished hearing. CARDIOVASCULAR system as mentioned earlier. RESPIRATORY: As mentioned earlier. GI: As mentioned earlier. no dysuria. Nervous system: No numbness or weakness. ALLERGY/IMMUNOLOGY: No asthma or hayfever. MUSCULOSKELETAL as mentioned earlier. HEMATOLOGY/ONCOLOGY: No history of anemia. ENDOCRINE: Hypothyroidism. CONSTITUTIONAL: As mentioned earlier. DERMATOLOGY: Negative. RHEUMATOLOGY negative. PSYCHIATRY as mentioned earlier. PHYSICAL EXAMINATION: Alert and oriented times three. Pulse 68, blood pressure 142/88, respirations 17, temperature 98.3, pulse ox 98% on room air. HEENT: Conjunctivae normal. Oral mucosa moist. NECK is no jugular venous distention. No carotid bruit. No lymph node enlargement. Cardiovascular system: S1, S2. Respiration: Breath sounds diminished at the bases. No rhonchi. No crackles. ABDOMEN: Soft, nontender. No mass palpable. Legs no edema. No swelling. NERVOUS SYSTEM: Higher functions as mentioned. Moves all 4 limbs. No focal motor or sensory deficits. Lymphatics: No lymph nodes palpable in the neck, axillae or groin. SKIN: No ulcer, no rash and no bleeding. JOINTS: No active deforming arthropathy. LABS: CBC and BMP noted. ASSESSMENT: 1. Chest pain. Possible unstable angina. 2. History of gallbladder polyps apparently. 3. Hypertension. 4. Hypothyroidism. 5. History of left breast cancer. 6. History of MULTIPLE ALLERGIES. 7. History of breast surgery. 8. History of anxiety. 9. Remote history of nicotine dependence. RECOMMENDATIONS AND DISCUSSION: This 44-year-old woman who presented with multiple complex medical issues, we will monitor the patient closely, continue the current management and symptomatic treatment. Recommend rule out myocardial infarction. Otherwise cardiology consultation and we will resume the home medications. Prognosis guarded because of multiple complex medical issues. further recommendations to follow. A copy of dictation being forwarded to Dr. Kell Bermudez who is the primary physician. MMODL / IJN: [id number] /
[2019-10-25] MEDS ORDERED: TAMOXIFEN 10 MG TAB PO SCH (21:00)
[2019-10-25 22:19] LABS: Appearance,Urine Clear (Clear); Bilirubin,Urine Negative (Negative); Blood,Urine Negative (Negative); Color,Urine Yellow; Glucose,Urine (UA) Negative (Negative); Ketones,Urine Negative (Negative); Leukocyte Esterase,Urine Negative (Negative); Nitrite,Urine Negative (Negative); Protein,Urine Trace (Negative); Specific Gravity,Urine 1.027 (1.001-1.035); Urobilinogen,Urine <2.0 mg/dL (<2.0)
[2019-10-26] MEDS: PANTOPRAZOLE 40 MG TABLET PO SCH (05:53)
[2019-10-26] MEDS ORDERED: LEVOTHYROXINE 50 MCG TAB PO SCH (06:30)
[2019-10-26 06:58] LABS: Cholesterol 163 mg/dL (<200); HDL Cholesterol 45 mg/dL (40-60); LDL Cholesterol,Calculated 97 mg/dL (0-99); Triglycerides 105 mg/dL (<150)
[2019-10-26] MEDS ORDERED: ASPIRIN 325 MG TAB PO SCH (09:00)
[2019-10-26 09:44] VITALS: BP 138/72; PULSE 79; TEMP 98.5
--- NOTE | 2019-10-26 11:17 | CONS ---
CONSULTATION CHIEF COMPLAINT: Chest pain. Jane is a 44-year-old lady with history of breast cancer, who was admitted to the hospital with chest pain. She describes her chest discomfort as sharp, precordial, pressure-like sensation that at times radiated to her left arm. It is unrelated to exertion and associated with diaphoresis. At the time of my evaluation she is chest pain free. She describes it as a mild to moderate intensity when it first came on, has had similar pains in the past and apparently underwent workup for the same and was told it was negative. EKG on this admission was within normal limits. Labs show that 3 sets of troponins are negative. PAST MEDICAL HISTORY: Significant for mild hypertension and hypothyroidism. MEDICATIONS: Medications include Zestril 2.5 daily, Zyrtec 10 daily, levothyroxine. ALLERGIES: KEFLEX, BACTRIM, HYDROCODONE. FAMILY HISTORY: Negative for premature coronary artery disease. SOCIAL HISTORY: Negative for smoking, EtOH abuse or drug abuse. REVIEW OF SYSTEMS: HEENT is unremarkable. CARDIAC: As described above RESPIRATORY: Negative. GI: Negative. GENITOURINARY: Negative. ALLERGY: Negative. SKIN: Negative. MUSCULOSKELETAL: Significant for arthritis. PSYCHOSOCIAL: Negative. ENDOCRINE: Negative. CONSTITUTIONAL: Negative. ONCOLOGICAL: Negative. FREELANCE WRITER: Negative. EXAM: Comfortable at rest. Vital signs are stable. There is no jugular venous distention. Carotid upstroke is normal. There is no bruit. Chest exam reveals good air entry bilaterally. Heart exam reveals first and second heart sounds. No gallop. No murmur. No rub. Abdomen is soft, nontender. Exam of extremities did not reveal any edema. Peripheral pulses are felt FREELANCE WRITER exam did not reveal focal neurological deficits. EKG shows sinus rhythm, normal axis, normal intervals. Cardiac enzymes have been negative. ASSESSMENT: Precordial chest pain. PLAN: Patient's chest discomfort is sharp, atypical, probably noncardiac. No further cardiac workup at this time. I advised her to undergo an outpatient echo and stress test. 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 MMODL / IJN: [id number] /
--- NOTE | 2019-10-26 21:29 | DS ---
DISCHARGE SUMMARY DATE OF SERVICE: 10/26/2019 FINAL DIAGNOSES: 1. Chest pain, myocardial infarction ruled out. Rule out coronary artery disease. 2. History of gallbladder polyps apparently. 3. Hypertension. 4. Hypothyroidism. 5. History of left breast cancer. 6. History of multiple allergies. 7. History of breast surgery. 8. History of anxiety. 9. Remote history of nicotine dependence. DISCHARGE DISPOSITION: Patient being discharged in stable condition with guarded prognosis. HISTORY OF PRESENT ILLNESS: This 44-year-old woman with a past medical history of multiple medical problems as mentioned earlier, was admitted with chest pain. Myocardial infarction ruled out and Cardiology saw the patient and recommend outpatient stress test. Otherwise basic labs including lipid panel negative. The patient discharged in in stable condition with guarded prognosis. DISCHARGE ADVICE AND MEDICATIONS: 1. Diet is cardiac diet. 2. Activity limited until followup. 3. Follow up with Dr. Kell Bermudez in 1-2 days. MEDICATIONS: 1. Tylenol p.r.n. 2. Other medications are to be continued at home as Synthroid 25 mcg p.o. daily. 3. Tamoxifen 20 mg q.h.s. 4. Zestril 2.5 mg. 5. Zyrtec 10 mg daily. Follow up with Dr. Rosas as recommended. Once again, the patient being discharged in stable condition with guarded prognosis. MMADYL / IJN: [id number] /
== END 2019-10-26 13:15 | disposition home or self-care (01) ==
LOC: EC 13:12 → 3SCARD 14:53
PROVIDERS: ADMIT Hospitalist; ATTEND Hospitalist
DX: R07.2 Precordial pain (principal); I10 Essential (primary) hypertension; M25.512 Pain in left shoulder; M54.9 Dorsalgia, unspecified; R10.11 Right upper quadrant pain; F41.9 Anxiety disorder, unspecified; E03.9 Hypothyroidism, unspecified; J30.2 Other seasonal allergic rhinitis; R61 Generalized hyperhidrosis; M19.90 Unspecified osteoarthritis, unspecified site; Z87.891 Personal history of nicotine dependence; Z85.3 Personal history of malignant neoplasm of breast; Z98.51 Tubal ligation status; Z79.890 Hormone replacement therapy; Z79.899 Other long term (current) drug therapy; Z88.5 Allergy status to narcotic agent; Z88.2 Allergy status to sulfonamides; Z88.1 Allergy status to other antibiotic agents; Z91.018 Allergy to other foods; Z79.810 Long term (current) use of selective estrogen receptor modulators (SERMs); Z86.14 Personal history of Methicillin resistant Staphylococcus aureus infection; Z90.12 Acquired absence of left breast and nipple; Z82.49 Family history of ischemic heart disease and other diseases of the circulatory system
CPT/HCPCS: 99284; 36415; 93005; 80061; 80048; 84484 ×2; 85025; 81003; 71046; G0378 ×2; S0187

== ENCOUNTER → 2020-01-09 | Outpatient (CLI) | payer MEDICAID ==
[~2020-01-09] MED LIST changes: +LEUPROLIDE ACET 11.25MG SYRGKIT IM NR; -LEUPROLIDE ACET 11.25MG SYRGKIT IM ONE
[2020-01-09 12:52] VITALS: BP 135/86; PULSE 81; RESP 16; TEMP 98.7
== END | disposition home or self-care (01) ==
LOC: PROCWHC3 12:34
PROVIDERS: ATTEND Internal Medicine Hematology & Oncology
DX: Z51.11 Encounter for antineoplastic chemotherapy (principal); C50.812 Malignant neoplasm of overlapping sites of left female breast; Z17.0 Estrogen receptor positive status [ER+]
CPT/HCPCS: 96402; J1950

== ENCOUNTER → 2020-01-27 | Outpatient (CLI) | payer MEDICAID ==
[2020-01-27 12:42] LABS: Basophils % (A) 0 %; Eosinophils # (A) 0.1 k/uL (0-0.7); Eosinophils % (A) 1 %; HCT 34.3 % (34.0-46.0); HGB 11.7 gm/dL (11.4-16.0); Lymphocytes # (A) 1.3 k/uL (1.0-4.8); Lymphocytes % (A) 20 %; MCH 32.2 pg (25.0-35.0); MCHC 34.2 g/dL (31.0-37.0); MCV 94.2 fL (80.0-100.0); Mean Platelet Volume 6.9; Monocytes # (A) 0.3 k/uL (0-1.0); Monocytes % (A) 4 %; Neutrophils # (A) 4.8 k/uL (1.3-7.7); Neutrophils % (A) 73 %; Platelet Count 355 k/uL (150-450); RBC 3.64 m/uL (3.80-5.40); WBC 6.6 k/uL (3.8-10.6)
[2020-01-27 18:36] LABS: African American GFR (CKD) 129.4 (60.0-200.0); Albumin 4.4 g/dL (3.80-4.90); Albumin/Globulin Ratio 1.52 (1.60-3.17); Anion Gap 9.9 mmol/L (4.00-12.00); BUN/Creat Ratio 21.67 Ratio (12.00-20.00); Calcium 9.3 mg/dL (8.7-10.3); Carbon Dioxide 27.1 mmol/L (21.6-31.8); Globulin 2.9 g/dL (1.6-3.3); Non-African American GFR(CKD) 111.6 (60.0-200.0); Potassium 3.8 mmol/L (3.5-5.5); Total Bilirubin 0.2 mg/dL (0.2-1.2); Total Protein 7.3 g/dL (6.2-8.2)
[2020-01-27 20:31] LABS: Follicle Stimulating Hormone 2.2 mIU/mL
[2020-01-27 20:52] LABS: Estradiol 18.8 pg/mL; Luteinizing Hormone 0.5 mIU/mL
== END | disposition home or self-care (01) ==
LOC: LABWHC1 11:47
PROVIDERS: ATTEND Internal Medicine Hematology & Oncology
DX: C50.812 Malignant neoplasm of overlapping sites of left female breast (principal); Z17.0 Estrogen receptor positive status [ER+]
CPT/HCPCS: 36415; 80053; 82670; 83001; 83002; 85025

== ENCOUNTER → 2020-04-12 | Outpatient (CLI) | payer MEDICAID ==
--- NOTE | 2020-04-12 14:00 | MM ---
Reason for exam: additional evaluation requested from prior study. Last mammogram was performed 1 year and 6 months ago. History: Patient is postmenopausal, has history of breast cancer at age 43, and is nulliparous. Mastectomy of the left breast, December 03, 2018. Malignant US biopsy breast VAD LT of the left breast, October 09, 2018. Malignant US biopsy breast add'l VAD LT of the left breast, October 09, 2018. Taking antineoplastic beginning at age 43. Physical Findings: Nurse did not find any significant physical abnormalities on exam. MG Diagnostic Mammo RT w CAD CC and MLO view(s) were taken of the right breast. Prior study comparison: October 09, 2018, left breast MG diagnostic mammo LT wo CAD. September 27, 2018, bilateral MG diagnostic mammo w CAD GABRIELA. The breast tissue is heterogeneously dense. This may lower the sensitivity of mammography. There is no discrete abnormality. No significant new findings when compared with previous films. These results were verbally communicated with the patient and result sheet given to the patient on 04/12/20. ASSESSMENT: Benign, BI-RAD 2 RECOMMENDATION: Follow-up diagnostic mammogram of the right breast in 1 year.
== END | disposition home or self-care (01) ==
LOC: RADMAMWWP 13:02
PROVIDERS: ATTEND Internal Medicine Hematology & Oncology
DX: Z08 Encounter for follow-up examination after completed treatment for malignant neoplasm (principal); Z85.3 Personal history of malignant neoplasm of breast
CPT/HCPCS: 77065

== ENCOUNTER → 2020-04-26 | Outpatient (CLI) | payer MEDICAID ==
[~2020-04-26] MED LIST changes: +GOSERELIN ACETATE 10.8 MG IMPLANT SQ NR; -LEUPROLIDE ACET 11.25MG SYRGKIT IM NR
[2020-04-26 11:38] VITALS: BP 133/82; PULSE 93; RESP 16; TEMP 98.1
== END | disposition home or self-care (01) ==
LOC: PROCWHC3 11:30
PROVIDERS: ATTEND Internal Medicine Hematology & Oncology
DX: D05.12 Intraductal carcinoma in situ of left breast (principal)
CPT/HCPCS: 96372; J9202

== ENCOUNTER → 2020-05-05 | Outpatient (CLI) | payer MEDICAID ==
--- NOTE | 2020-05-05 22:27 | BD ---
EXAMINATION TYPE: Axial Bone Density DATE OF EXAM: 05/05/2020 COMPARISON: NONE CLINICAL HISTORY: Postmenopausal female. History of breast cancer. Height: 63.5 IN Weight: 136 LBS FRAX RISK QUESTIONS: Secondary Osteoporosis: 3. Menopause before 45: YES AGE 43 4. Malnutrition: YES RISK FACTORS HISTORY OF: Active: YES Diet low in dairy products/other sources of calcium: YES Postmenopausal woman: AGE 43 Take estrogen and/or progesterone medications: NOT NOW How long: CONTROL AGE 20-35 MEDICATIONS: Thyroid Medications: YES Which medication: Levothyroxine How Lon YEARS + Additional Medications: LEVOTHYROXINE, LISINOPRIL, ANASTRAZOLE, Additional History: BREAST CANCER WITH RADIATION EXAM MEASUREMENTS: Bone mineral densitometry was performed using the [employer] System. Bone mineral density as measured about the Lumbar spine is: ----- L1-L4(G/cm2): 1.216 T Score Values are as follows: ----- L2: -0.2 ----- L3: 1.0 ----- L4: 0.0 ----- L1-L4: 0.3 Bone mineral density BASELINE Bone mineral density about the R hip (g/cm2): 0.942 Bone mineral density about the L hip (g/cm2): 0.940 T Score values are as follows: -----R Neck: -0.7 -----L Neck: -0.7 -----R Total: -0.3 -----L Total: -0.4 Bone mineral density BASELINE IMPRESSION: Normal (Values between +1 and -1 indicate normal bone mass). Consider repeating this study in 5 year s or sooner if there is some new clinical indication. NOTE: T-SCORE=SD OF THE YOUNG ADULT MEAN.
== END | disposition home or self-care (01) ==
LOC: RADBDWWP 09:22
PROVIDERS: ATTEND Internal Medicine Hematology & Oncology
DX: C50.812 Malignant neoplasm of overlapping sites of left female breast (principal); Z79.890 Hormone replacement therapy; Z88.5 Allergy status to narcotic agent; Z88.1 Allergy status to other antibiotic agents; Z88.2 Allergy status to sulfonamides
CPT/HCPCS: 77080

== ENCOUNTER → 2020-06-18 | Outpatient (CLI) | payer MEDICAID ==
--- NOTE | 2020-06-18 12:25 | US ---
EXAMINATION TYPE: US abdomen complete DATE OF EXAM: 06/18/2020 COMPARISON: US 2013. PET/CT November 08, 2018 CLINICAL HISTORY: RUQ pain R10.11. Pt states RUQ pain especially after eating fatty foods EXAM MEASUREMENTS: Liver Length: 15.3 cm Gallbladder Wall: 0.2 cm CBD: 0.4 cm Spleen: 9.9 cm Right Kidney: 9.2 x 4.2 x 4.8 cm Left Kidney: 9.7 x 4.9 x 4.1 cm Pancreas: wnl, tail obscured by overlying bowel gas Liver: wnl Gallbladder: wnl Evidence for sonographic Ragsdale's sign: No CBD: wnl Spleen: wnl Right Kidney: wnl Left Kidney: wnl, difficult to visualize due to overlying bowel gas Upper IVC: wnl Abd Aorta: wnl The visualized liver is homogenous. The intrahepatic portion of the IVC and visualized abdominal aor ta are within normal limits. There is no evidence of shadowing mobile cholelithiasis. Common bile d uct is unremarkable. The visualized portions of the pancreas are homogenous. The spleen is unremark able. Kidneys are symmetric and free of hydronephrosis. No renal lesions are seen. IMPRESSION: No suspicious new or acute findings are evident.
== END | disposition home or self-care (01) ==
LOC: RADUSWWP 10:24
PROVIDERS: ATTEND Family Medicine
DX: R10.11 Right upper quadrant pain (principal)
CPT/HCPCS: 76700

== ENCOUNTER → 2020-06-23 | Outpatient (CLI) | payer MEDICAID ==
--- NOTE | 2020-06-23 09:32 | NM ---
EXAMINATION TYPE: NM hepatobiliary w EF DATE OF EXAM: 06/23/2020 COMPARISON: NONE INDICATION: Right upper quadrant pain TECHNIQUE: After the intravenous administration of 4.17 mCi Tc 99m Mebrofenin hepatobiliary scintigra phy is performed. Images were obtained immediately post injection. FINDINGS: There is prompt uptake and excretion of radiotracer by the liver. Extrahepatic ducts are identified at 8 minutes. The gallbladder is visualized within 10 minutes. Small bowel activity is noted within 38 minutes. At one hour 8 ounces of oral ensure plus is given to mimic CCK and gallbladder ejection fraction is c alculated at 80 %, which is borderline elevated. (Normal >35% and <80%.). IMPRESSION: 1. Ejection fraction of 80% is borderline elevated. Consider biliary hyperkinesia within the differe ntial. 2. No obstruction
== END | disposition home or self-care (01) ==
LOC: RADNMMAIN 07:03
PROVIDERS: ATTEND Family Medicine
DX: R93.2 Abnormal findings on diagnostic imaging of liver and biliary tract (principal)
CPT/HCPCS: 78226; A9537

== ENCOUNTER → 2020-08-18 | Outpatient (CLI) | payer MEDICAID ==
[2020-08-18 20:15] LABS: Basophils # (A) 0.03 X 10*3/uL (0.00-0.10); Basophils % (A) 0.4 %; Eosinophils # (A) 0.07 X 10*3/uL (0.04-0.35); HCT 37.6 % (37.2-46.3); HGB 12.2 g/dL (12.0-15.0); Lymphocytes # (A) 1.72 X 10*3/uL (0.90-5.00); Lymphocytes % (A) 25.8 %; MCH 29.8 pg (27.0-32.0); MCHC 32.4 g/dL (32.0-37.0); MCV 91.9 fL (80.0-97.0); Mean Platelet Volume 9.6 fL (9.5-12.2); Monocytes # (A) 0.53 X 10*3/uL (0.20-1.00); Monocytes % (A) 7.9 %; Neutrophils % (A) 64.6 %; Platelet Count 378 X 10*3/uL (140-440); RBC 4.09 X 10*6/uL (4.10-5.20); WBC 6.67 X 10*3/uL (4.50-10.00)
[2020-08-19 00:41] LABS: Luteinizing Hormone 0.8 mIU/mL
[2020-08-19 00:42] LABS: Estradiol 34.2 pg/mL; Follicle Stimulating Hormone 6.5 mIU/mL
== END | disposition home or self-care (01) ==
LOC: LABWHC1 14:08
PROVIDERS: ATTEND Internal Medicine Hematology & Oncology
DX: C50.812 Malignant neoplasm of overlapping sites of left female breast (principal); E03.9 Hypothyroidism, unspecified; Z17.0 Estrogen receptor positive status [ER+]
CPT/HCPCS: 36415; 82670; 83001; 83002; 85025

== ENCOUNTER → 2020-11-12 | Outpatient (CLI) | payer MEDICAID ==
--- NOTE | 2020-11-12 16:25 | US ---
EXAMINATION TYPE: US pelvic complete DATE OF EXAM: 11/12/2020 COMPARISON: US CLINICAL HISTORY: N92.0 Excessive and frequent menstruation with reg. Patient stated had change in il dication for treating her Breast CA in July and had vaginal spotting then.Patient is now on Tamoxi fen and Lupron; uterine fibroids TECHNIQUE: Transabdominal (TA). Transabdominal sonographic images of the pelvis were acquired. Date of LMP: none for 1.5 years then break through bleeding in July EXAM MEASUREMENTS: Uterus: 10.7 x 6.0 x 4.3 cm Endometrial Stripe: 0.78 cm Right Ovary: 1.9 x 1.3 x 0.8 cm Left Ovary: 2.4 x 1.9 x 1.4 cm 1. Uterus: Anteverted; multiple uterine fibroids with largest = 3.8 x 3.4 x 3.2cm in upper myometriu m; uterine fibroids partially displace endometrium. 2. Endometrium: displaced by uterine leiomyomas; thickness is wnl for estrogen suppression medication Tamoxifen as thickness may measure up to 8.0mm (per department standards up to 50 % report having th ickness up to 8.0mm) 3. Right Ovary: wnl 4. Left Ovary: wnl 5. Bilateral Adnexa: wnl 6. Posterior cul-de-sac: bowel gas noted here IMPRESSION: 1. Multiple myometrial masses the largest measuring 3.8 cm the upper myometrium most typical of uteri ne fibroids. This does result in mass effect on the endometrium. 2. Endometrial stripe measures 8 mm correlate clinically. See above.
== END | disposition home or self-care (01) ==
LOC: RADUSWWP 15:41
PROVIDERS: ATTEND Family Medicine
DX: D25.9 Leiomyoma of uterus, unspecified (principal)
CPT/HCPCS: 76856

== ENCOUNTER → 2020-11-17 | Outpatient (CLI) | payer MEDICAID ==
[~2020-11-17] MED LIST changes: -GOSERELIN ACETATE 10.8 MG IMPLANT SQ NR; +LEUPROLIDE ACET 11.25MG SYRGKIT IM NR
[2020-11-17 13:12] VITALS: PULSE 78; RESP 16; TEMP 98.3
[2020-11-17 13:37] VITALS: BP 165/99
== END ==
LOC: EDSTATUS 11-04 12:30 → PROCWHC3 12:57
PROVIDERS: ATTEND Internal Medicine Hematology & Oncology
DX: C50.812 Malignant neoplasm of overlapping sites of left female breast (principal)
CPT/HCPCS: 96402; J1950

== ENCOUNTER → 2020-12-01 | Outpatient (CLI) | payer MEDICAID ==
[2020-12-01 14:19] LABS: HCT 34.2 % (37.2-46.3); HGB 11.1 g/dL (12.0-15.0); MCH 29.8 pg (27.0-32.0); MCHC 32.5 g/dL (32.0-37.0); MCV 91.9 fL (80.0-97.0); RBC 3.72 X 10*6/uL (4.10-5.20); WBC 5.41 X 10*3/uL (4.50-10.00)
[2020-12-01 14:20] LABS: Basophils # (A) 0.04 X 10*3/uL (0.00-0.10); Basophils % (A) 0.7 %; Eosinophils # (A) 0.06 X 10*3/uL (0.04-0.35); Eosinophils % (A) 1.1 %; Lymphocytes # (A) 1.49 X 10*3/uL (0.90-5.00); Lymphocytes % (A) 27.5 %; Mean Platelet Volume 9.4 fL (9.5-12.2); Monocytes # (A) 0.39 X 10*3/uL (0.20-1.00); Monocytes % (A) 7.2 %; Neutrophils # (A) 3.42 X 10*3/uL (1.80-7.70); Neutrophils % (A) 63.3 %; Platelet Count 376 X 10*3/uL (140-440)
[2020-12-01 14:57] LABS: African American GFR (CKD) 128.5 (60.0-200.0); Albumin 4.2 g/dL (3.80-4.90); Albumin/Globulin Ratio 1.31 (1.60-3.17); Anion Gap 7.9 mmol/L (4.00-12.00); BUN/Creat Ratio 23.33 Ratio (12.00-20.00); Calcium 8.9 mg/dL (8.7-10.3); Carbon Dioxide 27.1 mmol/L (21.6-31.8); Chol/HDL Ratio 3.43; Globulin 3.2 g/dL (1.6-3.3); LDL Cholesterol,Calculated 113.4 mg/dL (0.0-131.0); Non-African American GFR(CKD) 110.9 (60.0-200.0); Potassium 4.3 mmol/L (3.5-5.5); Total Bilirubin 0.4 mg/dL (0.2-1.2); Total Protein 7.4 g/dL (6.2-8.2); VLDL Calculation 15.6 mg/dL (5.00-40.00)
== END | disposition home or self-care (01) ==
LOC: LABWHC1 08:53
PROVIDERS: ATTEND Family Medicine
DX: I10 Essential (primary) hypertension (principal); E78.5 Hyperlipidemia, unspecified; E55.9 Vitamin D deficiency, unspecified
CPT/HCPCS: 36415; 80053; 80061; 82306; 84443; 85025

== ENCOUNTER → 2021-01-11 | Outpatient (CLI) | payer MEDICAID ==
[2021-01-11 23:00] LABS: Basophils # (A) 0.03 X 10*3/uL (0.00-0.10); Basophils % (A) 0.4 %; Eosinophils # (A) 0.05 X 10*3/uL (0.04-0.35); Eosinophils % (A) 0.7 %; HCT 32.6 % (37.2-46.3); HGB 10.6 g/dL (12.0-15.0); Lymphocytes # (A) 1.88 X 10*3/uL (0.90-5.00); Lymphocytes % (A) 25.4 %; MCH 30.1 pg (27.0-32.0); MCHC 32.5 g/dL (32.0-37.0); MCV 92.6 fL (80.0-97.0); Mean Platelet Volume 10.4 fL (9.5-12.2); Monocytes # (A) 0.48 X 10*3/uL (0.20-1.00); Monocytes % (A) 6.5 %; Neutrophils # (A) 4.95 X 10*3/uL (1.80-7.70); Neutrophils % (A) 66.7 %; Platelet Count 317 X 10*3/uL (140-440); RBC 3.52 X 10*6/uL (4.10-5.20); RDW 12.2 % (11.5-14.5); WBC 7.41 X 10*3/uL (4.50-10.00)
[2021-01-12 03:53] LABS: Follicle Stimulating Hormone 2.8 mIU/mL
[2021-01-12 04:05] LABS: Estradiol <11.8 pg/mL; Luteinizing Hormone 0.2 mIU/mL
== END | disposition home or self-care (01) ==
LOC: LABWHC1 15:16
PROVIDERS: ATTEND Internal Medicine Hematology & Oncology
DX: C50.812 Malignant neoplasm of overlapping sites of left female breast (principal); E03.9 Hypothyroidism, unspecified; Z17.0 Estrogen receptor positive status [ER+]
CPT/HCPCS: 36415; 82670; 83001; 83002; 85025

== ENCOUNTER → 2021-04-06 | Outpatient (CLI) | payer MEDICAID ==
[2021-04-06 13:19] VITALS: BP 136/80; PULSE 76; RESP 16; TEMP 98.3
== END ==
LOC: PROCWHC3 13:03
PROVIDERS: ATTEND Internal Medicine Hematology & Oncology
DX: C50.812 Malignant neoplasm of overlapping sites of left female breast (principal); Z88.1 Allergy status to other antibiotic agents; Z88.5 Allergy status to narcotic agent; Z88.2 Allergy status to sulfonamides; Z87.891 Personal history of nicotine dependence
CPT/HCPCS: 96402; J1950

== ENCOUNTER → 2021-04-18 | Outpatient (CLI) | payer MEDICAID ==
[2021-04-18 08:57] LABS: Basophils % (A) 0 %; Eosinophils # (A) 0.1 k/uL (0-0.7); Eosinophils % (A) 1 %; HCT 36.2 % (34.0-46.0); HGB 11.9 gm/dL (11.4-16.0); Lymphocytes # (A) 1.5 k/uL (1.0-4.8); Lymphocytes % (A) 27 %; MCH 30.8 pg (25.0-35.0); MCHC 32.8 g/dL (31.0-37.0); Mean Platelet Volume 6.7; Monocytes # (A) 0.3 k/uL (0-1.0); Monocytes % (A) 5 %; Neutrophils # (A) 3.5 k/uL (1.3-7.7); Neutrophils % (A) 64 %; Platelet Count 383 k/uL (150-450); RBC 3.85 m/uL (3.80-5.40); RDW 12.1 % (11.5-15.5); WBC 5.4 k/uL (3.8-10.6)
[2021-04-18 09:38] LABS: African American GFR (CKD) >90 (>60 ml/min/1.73 sqM); Anion Gap 9 mmol/L; Blood Urea Nitrogen 13 mg/dL (7-17); Calcium 9.6 mg/dL (8.4-10.2); Carbon Dioxide 27 mmol/L (22-30); Chloride 105 mmol/L (98-107); Glucose 102 mg/dL (74-99); Non-African American GFR(CKD) >90 (>60 ml/min/1.73 sqM); Potassium 4.5 mmol/L (3.5-5.1); Sodium 141 mmol/L (137-145)
== END | disposition home or self-care (01) ==
LOC: LABPAT 08:05
PROVIDERS: ATTEND Obstetrics & Gynecology
DX: Z01.812 Encounter for preprocedural laboratory examination (principal)
CPT/HCPCS: 80048; 85025

== ENCOUNTER 2021-04-28 05:40 | Observation (INO) | payer MEDICAID ==
[2021-04-27 11:31] VITALS: BMI 25.7
--- NOTE | 2021-04-27 15:53 | P.HPOB ---
History of Present Illness H&P Date: 04/27/21 Chief Complaint: breast cancer, fibroid uterus 45 year old G0 presents for [facility] BSO with da jaguar, diagnostic cystoscopy, possible laparotomy.She is on lupron and tamoxifen for her breast cancer and her oncologist recommends [facility] BSO. Review of Systems All systems: negative Constitutional: Denies chills, Denies fever Eyes: denies blurred vision, denies pain Ears, nose, mouth and throat: Denies headache, Denies sore throat Cardiovascular: Denies chest pain, Denies shortness of breath Respiratory: Denies cough Gastrointestinal: Denies abdominal pain, Denies diarrhea, Denies nausea, Denies vomiting Genitourinary: Denies dysuria, Denies hematuria Musculoskeletal: Denies myalgias Integumentary: Denies pruritus, Denies rash Neurological: Denies numbness, Denies weakness Psychiatric: Denies anxiety, Denies depression Endocrine: Denies fatigue, Denies weight change Past Medical History Past Medical History: Cancer, Hypertension, Musculoskeletal Disorder, Thyroid Disorder Additional Past Medical History / Comment(s): HAYFEVER, LEFT BREAST CANCER November 2018-had surg. & radiation History of Any Multi-Drug Resistant Organisms: MRSA Date of last positivie culture/infection: 01/2015 MDRO Source:: RIGHT BIG TOE Past Surgical History: Breast Surgery, Tubal Ligation Additional Past Surgical History / Comment(s): Foot surgery for splinter removal 1990,. 12/03/2018 left mastectomy Past Anesthesia/Blood Transfusion Reactions: Motion Sickness, Postoperative Nausea & Vomiting (PONV) Smoking Status: Former smoker - Past Family History Mother Family Medical History: Congestive Heart Failure (CHF), Myocardial Infarction ([place]) Additional Family Medical History / Comment(s): Sepsis, CABG Father Family Medical History: Myocardial Infarction ([place]) Additional Family Medical History / Comment(s): CABG Medications and Allergies Home Medications Medication Instructions Recorded Confirmed Type Levothyroxine Sodium [Synthroid] 25 mcg PO DAILY 06/15/15 04/27/21 History Cetirizine HCl [Zyrtec] 10 mg PO DAILY PRN 10/02/18 04/27/21 History Lisinopril [Zestril] 10 mg PO HS 08/05/20 04/27/21 History Lupron(Unknown Dose) INJ Q90D 10/13/21 History Tamoxifen Citrate 20 mg PO HS 04/27/21 04/27/21 History Allergies Allergy/AdvReac Type Severity Reaction Status Date / Time cephalexin [From Keflex] Allergy Severe Swelling Verified 04/06/21 13:14 hydrocodone Allergy Nausea Verified 04/06/21 13:14 sulfamethoxazole AdvReac Unknown Verified 04/06/21 13:14 [From Bactrim] trimethoprim [From Bactrim] AdvReac Unknown Verified 04/06/21 13:14 Exam Osteopathic Statement: *. No significant issues noted on an osteopathic str uctural exam other than those noted in the History and Physical/Consult. Intake and Output 04/27/21 04/27/21 04/27/21 06:59 14:59 22:59 Other: Weight 68.039 kg Heart: RRR Lungs: CTAB Abdomen: soft, nontender Extremeties: neg martine's Assessment and Plan (1) Breast cancer Status: Acute Code(s): C50.919 - MALIGNANT NEOPLASM OF UNSP SITE OF UNSPECIFIED FEMALE BREAST SNOMED Code(s): 828955909 (2) Fibroid uterus Status: Acute Code(s): D25.9 - LEIOMYOMA OF UTERUS, UNSPECIFIED SNOMED Code(s): 68535077 Plan: 1. H BSO with da jaguar, diagnostic cystoscopy, possible JORGE L BSO
[~2021-04-28 05:40] MED LIST changes: +CLINDAMYCIN 900 MG in DEXTROSE 5% IN WATER 50 ML IVPB PRN; +GENTAMICIN 300 MG in SODIUM CHLORIDE 0.9% 100 ML IVPB PRN; -LEUPROLIDE ACET 11.25MG SYRGKIT IM NR
[2021-04-28] MEDS ORDERED: DEXAMETHASONE SOD PHOSPHATE 4 MG/ML 1 ML VIAL IV ONE (06:11)
[2021-04-28] MEDS ORDERED: LACTATED RINGERS 1,000 ML IV SCH (06:11)
[2021-04-28] MEDS ORDERED: LACTATED RINGERS 1,000 ML IV ONE ×2 (06:24→09:02)
[2021-04-28] MEDS: ONDANSETRON 4 MG/2 ML VIAL IVP ONE ×2 (06:30→09:33)
[2021-04-28] MEDS ORDERED: SCOPOLAMINE 1.5MG/72HR PATCH TRANSDERM ONE (06:30)
[2021-04-28] MEDS ORDERED: SUCCINYLCHOLINE CHLORIDE 100 MG/5 ML SYR IV ONE (07:05)
[2021-04-28] MEDS ORDERED: GLYCOPYRROLATE 0.2 MG/ML 2 ML VIAL ONE (07:05)
[2021-04-28] MEDS ORDERED: NEOSTIGMINE 1 MG/ML 10 ML VIAL ONE (07:05)
[2021-04-28] MEDS ORDERED: fentaNYL (PF) 50 MCG/ML 2 ML AMP ONE (07:05)
[2021-04-28] MEDS ORDERED: ROCURONIUM 10 MG/ML (5 ML VIAL) IV ONE (07:05)
[2021-04-28] MEDS ORDERED: PHENYLEPHRINE-0.9% NACL SYG 1,000 MCG/10 ML SYRINGE ONE (07:05)
[2021-04-28] MEDS ORDERED: PROPOFOL 10 MG/ML 20 ML VIAL IV ONE (07:05)
[2021-04-28] MEDS ORDERED: MIDAZOLAM 2 MG/2 ML VIAL ONE (07:05)
[2021-04-28] MEDS ORDERED: LIDOCAINE 1% INJ 10MG/ML (20 ML MDV) ONE (07:05)
[2021-04-28] MEDS ORDERED: BUPIVACAINE (PF) 0.25% 30 ML VIAL SQ ONE (08:05)
[2021-04-28] MEDS ORDERED: BUPIVACAINE (PF) 0.5% 30 ML VIAL SQ ONE (08:18)
[2021-04-28] MEDS: fentaNYL (PF) 50 MCG/ML 2 ML AMP IV PRN ×2 (08:58→09:15)
[2021-04-28 09:18] VITALS: RESP 16
--- NOTE | 2021-04-28 09:22 | P.OP ---
Date of Procedure: 04/28/21 Preoperative Diagnosis: 1. breast cancer 2. fibroid uterus Postoperative Diagnosis: 1. breast cancer 2. fibroid uterus Procedure(s) Performed: Total Laparoscopic hysterectomy bilateral salpingo-oophorectomy using da Edi, diagnostic cystoscopy. Anesthesia: FRANCYA Surgeon: Antonia Silva Crocheter #1: Hudson Bocanegra Estimated Blood Loss (ml): 20 IV fluids (ml): 400 Urine output (ml): 70 Pathology: other (Uterus, cervix, bilateral tubes and ovaries) Condition: stable Disposition: PACU Operative Findings: Fibroid uterus that sounded to 8 cm, size of cervix was 3 cm. Description of Procedure: Patient taken the operating room where general anesthesia was obtained without difficulty. She is prepped and draped in normal sterile fashion dorsal lithotomy position, legs placed in the Ld stirrups. Weighted speculum placed in the vagina and the anterior lip the cervix was grasped with single-tooth tenaculum. The uterus sounded to 8 cm and the cervix diameter was 3 cm. The appropriate manipulator tip and ring were placed on the Oksana manipulator. The Oksana manipulator was then placed in the uterus. Melgar catheter was also placed. Attention was then turned to the abdomen and gloves were changed. A 5 mm supraumbilical incision was made the scalpel and a 5 mm optical trocar was placed under direct visualization. 10 cm to the right of this and 2 cm down a 5 mm incision was made and 8 mm da Edi port was placed under direct visualization. Same measurements on the opposite side of the patient's abdomen, the 5 mm incision was made and 8 mm da Edi port was placed under direct visualization. In the left upper quadrant a 10 mm incision was made and a 10 mm optical trocar was placed under direct visualization. The 5 mm optical trocar was then replaced with the 8 mm da Edi camera port. The robot was docked on patient's right side. The camera was introduced and then the monopolar curved scissor and [place] bipolar placed under direct visualization. I broke scrub and went to the physician console. The left infundibulopelvic ligament was cauterized with the [place] bipolar and cut with monopolar curved scissors. The left round ligament was cauterized with the [place] bipolar and cut with monopolar curved scissors. The posterior leaf of the broad ligament was taken down using the monopolar curved scissors. Anterior leaf of the broad ligament was then taken down using the monopolar curved scissors. The uterine artery was cauterized with the [place] bipolar and cut with monopolar curved scissors. The bladder flap was then started using the monopolar curved scissors. Attention was then turned to the right side of the patient's anatomy and the right infundibular pelvic ligament was cauterized with the [place] bipolar and cut with monopolar curved scissors. The right round ligament was cauterized with the [place] bipolar and cut with monopolar curved scissors. Posterior leaf of the broad ligament was taken down using the monopolar curved scissors and the anterior leaf was taken down using the monopolar curved scissors. The uterine artery was cauterized the [place] bipolar cut with monopolar curved scissors. The bladder flap was then finished on this side. Anterior colpotomy was made using the monopolar curved scissors. The rest of the uterus was from the vaginal cuff by following the ring around with the monopolar curved scissors through the uterosacral ligaments back to the anterior portion. Once the uterus and cervix were amputated they were pulled through the vaginal cuff. Hemostasis was assured. The instruments were changed for the Cardier forcep and the marcos suture cut. The vaginal cuff was then closed using 2-O stratafix barbed suture in a running fashion. Hemostasis was again assured and the pelvis was irrigated. All instruments were removed from the abdomen and the robot was undocked. I scrubbed back in to perform a cystoscopy. There were jets from both ureteral orifices. The abdominal incisions were closed with 4-0 Vicryl in a subcuticular fashion. Patient tolerated the procedure well, sponge and instrument counts correct 2 and she was taken to recovery room in stable condition condition
[2021-04-28] MEDS ORDERED: IBUPROFEN 600 MG TAB PO PRN (09:35)
[2021-04-28] MEDS ORDERED: ZOLPIDEM 5 MG TAB PO PRN (09:35)
[2021-04-28] MEDS ORDERED: Acetaminophen-Codeine 300-30mg TAB PO PRN ×2 (09:35)
[2021-04-28] MEDS ORDERED: SIMETHICONE 80 MG CHEWABLE PO PRN (09:35)
[2021-04-28] MEDS ORDERED: diphenhydrAMINE 50 MG/ML 1 ML VIAL IVP PRN (09:35)
[2021-04-28] MEDS ORDERED: LORATADINE 10 MG TAB PO PRN (09:35)
[2021-04-28] MEDS ORDERED: ONDANSETRON 4 MG/2 ML VIAL IVP PRN (09:35)
[2021-04-28] MEDS ORDERED: METOCLOPRAMIDE 5 MG/ML 2 ML VIAL IVP PRN (09:35)
[2021-04-28] MEDS: KETOROLAC 15 MG/ML 1 ML VIAL IVP PRN ×2 (14:48→21:21)
[2021-04-28] MEDS: SENNOSIDES-DOCUSATE SODIUM 1 EACH TAB PO SCH (19:59)
[2021-04-28] MEDS ORDERED: lisinopriL 10 MG TAB PO SCH (21:00)
[2021-04-28] MEDS ORDERED: TAMOXIFEN 10 MG TAB PO SCH (21:00)
[2021-04-29] MEDS: LEVOTHYROXINE 25 MCG TAB PO SCH ×2 (05:20→06:04)
--- NOTE | 2021-04-29 07:26 | P.DS ---
Providers Date of admission: 04/28/21 23:30 Expected date of discharge: 04/29/21 Attending physician: Antonia Silva Primary care physician: Kell Bermudez - Discharge Diagnosis(es) (1) Breast cancer Current Visit: No Status: Chronic (2) Fibroid uterus Current Visit: No Status: Resolved (3) History of robot-assisted laparoscopic hysterectomy Current Visit: Yes Status: Acute Hospital Course: She presented for total laparoscopic hysterectomy bilateral salpingo- oophorectomy using da Edi and diagnostic cystoscopy. She underwent this procedure without complication. Postoperative course was uneventful. She cristiane es nausea, vomiting, chest pain, shortness of breath or any calf pain. Her incisions are clean, dry, intact. Patient will be discharged home on Tylenol 3 and Motrin which is controlling her pain. Patient will follow-up with me in 3 weeks. Plan - Discharge Summary Discharge Rx Participant: Yes New Discharge Prescriptions: New Ibuprofen [Motrin] 600 mg PO Q6HR PRN #30 tab PRN Reason: Mild Pain Or Fever >= 100.5 Acetaminophen-Codeine 300-30mg [Tylenol #3] 1 - 2 tab PO Q6H PRN #20 tablet PRN Reason: Pain No Action Levothyroxine Sodium [Synthroid] 25 mcg PO DAILY Cetirizine HCl [Zyrtec] 10 mg PO DAILY PRN PRN Reason: Allergy Symptoms Lisinopril [Zestril] 10 mg PO HS Tamoxifen Citrate 20 mg PO HS Lupron(Unknown Dose) INJ Q90D Discharge Medication List Levothyroxine Sodium [Synthroid] 25 mcg PO DAILY 06/15/15 [History] Cetirizine HCl [Zyrtec] 10 mg PO DAILY PRN 10/02/18 [History] Lisinopril [Zestril] 10 mg PO HS 08/05/20 [History] Lupron(Unknown Dose) INJ Q90D 04/27/21 [History] Tamoxifen Citrate 20 mg PO HS 04/27/21 [History] Acetaminophen-Codeine 300-30mg [Tylenol #3] 1 - 2 tab PO Q6H PRN #20 tablet 04/29/21 [Rx] Ibuprofen [Motrin] 600 mg PO Q6HR PRN #30 tab 04/29/21 [Rx] Follow up Appointment(s)/Referral(s): Antonia Silva DO [Doctor of Osteopathic Medicine] - 3 Weeks Discharge Disposition: HOME SELF-CARE
[2021-04-29 07:33] LABS: Basophils % (A) 0 %; Eosinophils % (A) 0 %; HCT 35.1 % (34.0-46.0); HGB 11.7 gm/dL (11.4-16.0); Lymphocytes # (A) 2.2 k/uL (1.0-4.8); Lymphocytes % (A) 19 %; MCHC 33.4 g/dL (31.0-37.0); MCV 95.8 fL (80.0-100.0); Mean Platelet Volume 7.1; Monocytes # (A) 0.8 k/uL (0-1.0); Monocytes % (A) 7 %; Neutrophils # (A) 8.3 k/uL (1.3-7.7); Neutrophils % (A) 72 %; Platelet Count 418 k/uL (150-450); RBC 3.66 m/uL (3.80-5.40); RDW 12.4 % (11.5-15.5); WBC 11.5 k/uL (3.8-10.6)
[2021-04-29] MEDS ORDERED: ACETAMINOPHEN TAB 325 MG TAB PO PRN (09:19)
[2021-04-29 10:09] VITALS: BP 114/72; PULSE 82; TEMP 98.3
[2021-04-29] MEDS: SENNOSIDES-DOCUSATE SODIUM 1 EACH TAB PO SCH (10:10)
== END 2021-04-29 11:16 | disposition home or self-care (01) ==
LOC: OR 05:40 → 4FBP 08:39 → OR 23:30
PROVIDERS: ADMIT Obstetrics & Gynecology; ATTEND Obstetrics & Gynecology
DX: D25.9 Leiomyoma of uterus, unspecified (principal); Z20.822 Contact with and (suspected) exposure to COVID-19; C50.919 Malignant neoplasm of unspecified site of unspecified female breast; I10 Essential (primary) hypertension; E07.9 Disorder of thyroid, unspecified; J30.1 Allergic rhinitis due to pollen; Z79.890 Hormone replacement therapy; Z79.899 Other long term (current) drug therapy; Z88.2 Allergy status to sulfonamides; Z88.5 Allergy status to narcotic agent; Z88.1 Allergy status to other antibiotic agents; Z87.891 Personal history of nicotine dependence; Z90.12 Acquired absence of left breast and nipple; Z86.14 Personal history of Methicillin resistant Staphylococcus aureus infection; Z79.818 Long term (current) use of other agents affecting estrogen receptors and estrogen levels; Z79.810 Long term (current) use of selective estrogen receptor modulators (SERMs); Z92.3 Personal history of irradiation; Z82.49 Family history of ischemic heart disease and other diseases of the circulatory system
CPT/HCPCS: 58552; S2900; 81025; 85025; 86850; 86900; 86901; 87635; 88307

== ENCOUNTER → 2021-06-07 | Outpatient (CLI) | payer MEDICAID ==
[2021-06-07 14:53] LABS: Basophils # (A) 0.05 X 10*3/uL (0.00-0.10); Basophils % (A) 0.7 %; Eosinophils # (A) 0.08 X 10*3/uL (0.04-0.35); HCT 34.8 % (37.2-46.3); Lymphocytes # (A) 1.71 X 10*3/uL (0.90-5.00); Lymphocytes % (A) 22.3 %; MCH 29.8 pg (27.0-32.0); MCHC 31.6 g/dL (32.0-37.0); MCV 94.3 fL (80.0-97.0); Mean Platelet Volume 9.4 fL (9.5-12.2); Monocytes % (A) 5.2 %; Neutrophils # (A) 5.41 X 10*3/uL (1.80-7.70); Neutrophils % (A) 70.5 %; Platelet Count 412 X 10*3/uL (140-440); RBC 3.69 X 10*6/uL (4.10-5.20); RDW 12.4 % (11.5-14.5); WBC 7.67 X 10*3/uL (4.50-10.00)
[2021-06-07 16:43] LABS: ALT 17 U/L (8-44); AST 16 U/L (13-35); African American GFR (CKD) 128.5 (60.0-200.0); Albumin 4.4 g/dL (3.8-4.9); Albumin/Globulin Ratio 1.33 (1.60-3.17); Alkaline Phosphatase 91 U/L (41-126); Blood Urea Nitrogen 9.6 mg/dL (9.0-27.0); Calcium 9.7 mg/dL (8.7-10.3); Chloride 105 mmol/L (96-109); Globulin 3.3 g/dL (1.6-3.3); Glucose 89 mg/dL (70-110); Non-African American GFR(CKD) 110.9 (60.0-200.0); Potassium 4.4 mmol/L (3.5-5.5); Sodium 141 mmol/L (135-145); Total Bilirubin <0.20 mg/dL (0.30-1.20); Total Protein 7.7 g/dL (6.2-8.2)
== END | disposition home or self-care (01) ==
LOC: LABWHC1 08:59
PROVIDERS: ATTEND Family Medicine
DX: C50.912 Malignant neoplasm of unspecified site of left female breast (principal); I10 Essential (primary) hypertension; E78.5 Hyperlipidemia, unspecified; E55.9 Vitamin D deficiency, unspecified; Z90.721 Acquired absence of ovaries, unilateral; Z23 Encounter for immunization; Z90.710 Acquired absence of both cervix and uterus; Z90.722 Acquired absence of ovaries, bilateral; Z90.12 Acquired absence of left breast and nipple
CPT/HCPCS: 36415; 80053; 84443; 85025

== ENCOUNTER → 2023-01-15 | Outpatient (CLI) | payer BC ==
--- NOTE | 2023-01-15 08:17 | MM ---
Reason for Exam: Additional evaluation requested from prior study. Last mammogram was performed 2 year(s) and 10 month(s) ago. Patient History: Menarche at age 14. Patient has no children. Postmenopausal. Breast cancer, left, age 43. 12/03/2018, Mastectomy on the Left side. 10/09/2018, Malignant Core Biopsy on the left side. 10/09/2018, Malignant Core Biopsy on the left side. Prior Study Comparison: 09/27/2018 Bilateral Diagnostic Mammogram, [facility]. 10/09/2018 Left Diagnostic Mammogram, [facility]. 04/12/2020 Right Diagnostic Mammogram, [facility]. Tissue Density: Right: The breast tissue is heterogeneously dense. This may lower the sensitivity of mammography. Findings: Analyzed By CAD. Pattern appears stable. No significant interval change is evident. No suspicious groups of microcalcifications, spiculated or lobular masses, architectural distortion or other secondary signs of malignancy are mammographically apparent. Patient reports dimpling under the right breast when raising arm. No mammographic abnormality is present to account for this finding. Clinical management is recommended. Overall Assessment: Benign, BI-RAD 2 Management: Screening Mammogram of the right breast in 1 year. A negative mammogram report should not preclude additional follow up of suspicious palpable abnormalities. Patient should continue monthly self breast exam. A clinical breast exam by your physician is recommended on an annual basis and results should be correlated with mammographic findings. Electronically signed and approved by: Hank Dia D.O. Radiologis
== END | disposition home or self-care (01) ==
LOC: RADMAMWWP 07:39
PROVIDERS: ATTEND Family Medicine
DX: C50.912 Malignant neoplasm of unspecified site of left female breast (principal); R92.8 Other abnormal and inconclusive findings on diagnostic imaging of breast; M79.622 Pain in left upper arm; Z78.0 Asymptomatic menopausal state
CPT/HCPCS: 77061; 77065

== ENCOUNTER → 2023-01-23 | Outpatient (CLI) | payer BC ==
--- NOTE | 2023-01-23 08:46 | USB ---
Reason for Exam: Clinical finding. Patient History: Menarche at age 14. Patient has no children. Postmenopausal. Breast cancer, left, age 43. 12/03/2018, Mastectomy on the Left side. 10/09/2018, Malignant Core Biopsy on the left side. 10/09/2018, Malignant Core Biopsy on the left side. Technique: Method: Targeted. Prior Study Comparison: 10/09/2018 Left Diagnostic Mammogram, [facility]. 04/12/2020 Right Diagnostic Mammogram, [facility]. 01/15/2023 Right MG 3D diag mammo w/cad RT, [facility]. Findings: The axilla of the left breast was scanned. Imaged: Ultrasound imaging of: Of the axilla. No evidence for organizing fluid collection or mass. Overall Assessment: Negative, BI-RAD 1 Management: Screening Mammogram of the right breast in 1 year. A clinical breast exam by your physician is recommended on an annual basis and results should be correlated with mammographic findings. This exam should not preclude additional follow-up of suspicious palpable abnormalities. Results were given to the patient verbally at the time of exam. Electronically signed and approved by: Antolin Clarke DO
== END | disposition home or self-care (01) ==
LOC: RADUSWWP 08:12
PROVIDERS: ATTEND Family Medicine
DX: R92.8 Other abnormal and inconclusive findings on diagnostic imaging of breast (principal); M79.622 Pain in left upper arm; Z78.0 Asymptomatic menopausal state

== ENCOUNTER 2023-09-07 10:04 | Day surgery (SDC) | payer BC ==
[2023-09-05 12:37] VITALS: BMI 24.9
[2023-09-07] MEDS: LACTATED RINGERS 1,000 ML IV SCH (11:33)
[2023-09-07 11:34] VITALS: TEMP 97.9
[2023-09-07 11:36] LABS: Glucose,Whole Blood 84 mg/dL (70-110)
[2023-09-07] MEDS ORDERED: PROPOFOL 10 MG/ML 20 ML VIAL IV ONE (12:13)
--- NOTE | 2023-09-07 12:36 | P.PCN ---
Date of Procedure: 09/07/23 Procedure(s) Performed: BRIEF HISTORY: Patient is a 48-year-old pleasant white female scheduled for an elective colonoscopy as a part of evaluation of chronic diarrhea and intermittent lower abdominal pain for the last few months duration. PROCEDURE PERFORMED: Colonoscopy with random biopsies. PREOPERATIVE DIAGNOSIS: Lower abdominal pain and chronic diarrhea. IV sedation per Anesthesia. PROCEDURE: After informed consent was obtained, the patient, was brought into the endoscopy unit. IV sedation was administered by Anesthesia under continuous monitoring. Digital rectal examination was normal. Initially the Olympus CF-160 flexible video colonoscope was then inserted in the rectum, gradually advanced into the cecum without any difficulty. Careful examination was performed as the scope was gradually being withdrawn. Ileocecal valve and the appendiceal orifice were visualized and appeared normal. Prep was excellent. Mucosa of the cecum, ascending colon, transverse colon, descending colon, sigmoid colon, and rectum appeared normal. Random biopsies were done from ascending and descending colon to rule out microscopic/collagenous colitis. Retroflexion was performed in the rectum and no lesions were seen. The patient tolerated the procedure well. IMPRESSION: Normal-appearing colon from rectum to cecum with no evidence of colitis or colorectal neoplasia . RECOMMENDATIONS: Findings of this examination were discussed with the patient as well as a family. Follow with the biopsy results. She was advised to have a repeat screening colonoscopy colonoscopy in 10 years..
[2023-09-07 13:08] VITALS: BP 104/69; PULSE 61; RESP 16
== END 2023-09-07 13:23 | disposition home or self-care (01) ==
LOC: ORWHC2ENDO 10:04
PROVIDERS: ATTEND Internal Medicine Gastroenterology
DX: K52.9 Noninfective gastroenteritis and colitis, unspecified (principal); I10 Essential (primary) hypertension; E07.9 Disorder of thyroid, unspecified; Z79.890 Hormone replacement therapy; Z79.899 Other long term (current) drug therapy; Z88.5 Allergy status to narcotic agent; Z88.1 Allergy status to other antibiotic agents; Z88.8 Allergy status to other drugs, medicaments and biological substances; Z85.3 Personal history of malignant neoplasm of breast
CPT/HCPCS: 45380; J2704; 88305

== ENCOUNTER → 2023-12-19 | Outpatient (CLI) | payer BC ==
--- NOTE | 2023-12-19 08:54 | US ---
EXAMINATION TYPE: US abdomen complete DATE OF EXAM: 12/19/2023 COMPARISON: 06/18/2020 CLINICAL INDICATION: Female, 48 years old with history of K76.9 LIVER DISEASE; Pt states liver lesion found on MRI on 12/05/23 TECHNIQUE: Multiple sonographic images of the abdomen are obtained. FINDINGS: EXAM MEASUREMENTS: Liver Length: 13.6 cm Gallbladder Wall: 0.14 cm CBD: 0.4 cm Spleen: 9.7 cm Right Kidney: 9.9 x 4.2 x 4.2 cm Left Kidney: 10.3 x 4.6 x 5.4 cm Pancreas: Tail obscured by overlying bowel gas, parts seen appear wnl Liver: No obvious lesion seen on today's study. Slightly limited due to bowel gas Gallbladder: Polyps seen, largest = 0.4cm Evidence for sonographic Ragsdale's sign: No CBD: wnl Spleen: wnl Right Kidney: dilated renal pelvis measuring 0.9cm Left Kidney: wnl Upper IVC: wnl Abd Aorta: wnl The liver is homogenous. The intrahepatic portion of the IVC and proximal abdominal aorta are within normal limits. There is no evidence of cholelithiasis. Common bile duct is unremarkable. The visu alized portions of the pancreas are homogenous. The spleen is unremarkable. Kidneys are symmetric a nd free of hydronephrosis. No renal lesions are seen. IMPRESSION: 1. No evidence for liver lesion on today's exam. No prior MRI available for comparison. 2. Tiny gallbladder polyp measuring 4 mm consider follow-up ultrasound in 6 months to ensure stabili ty.
== END | disposition home or self-care (01) ==
LOC: RADUSWWP 07:07
PROVIDERS: ATTEND Family Medicine
DX: K82.4 Cholesterolosis of gallbladder (principal); K76.9 Liver disease, unspecified
CPT/HCPCS: 76700